=== PATIENT | female | born 2005 | race Hispanic/Latino ===

== ENCOUNTER → 2023-08-02 | Emergency (ER) | payer OTHER ==
[~2023-08-02] MED LIST: MORPHINE 4 MG/ML SYR ONE; NA CHLORIDE 0.9% 1,000 ML ONE; ONDANSETRON 4 MG/2 ML VIAL ONE
[2023-08-02 22:05] LABS: Absolute Lymphocytes (CBC) 4.1 K/uL (0.7-4.9); Hematocrit 37.1 % (36.0-45.0); Lymphocytes % 31.7 % (15.3-44.8); MCV 82.2 fL (80-100); MPV 7.9 fL (7.6-11.3); Platelets 303 thou/uL (152-406); RBC Red Blood Cell Count 4.52 M/uL (3.86-4.86)
[2023-08-02 22:14] LABS: Bilirubin Total 0.3 mg/dL (0.2-1.0); Potassium 3.6 mEq/L (3.5-5.1); Protein, Total 7.4 g/dL (6.4-8.2)
[2023-08-02 23:13] LABS: Specific Gravity > 1.030 (1.005-1.030)
[2023-08-02 23:21] LABS: Specific Gravity > 1.030 (1.005-1.030); Urine Bacteria None Seen /HPF (<20); Urine Bilirubin NEGATIVE (Negative); Urine Blood Negative (Negative); Urine Clarity Clear (Clear); Urine Color Light-Yellow (Yellow); Urine Glucose NEGATIVE (Negative); Urine Mucus Slight /HPF (None Seen); Urine Protein TRACE (Negative); Urine RBC <5 /HPF (None Seen); Urine Urobilinogen Normal (Normal)
--- NOTE | 2023-08-03 00:50 | EDPHYS ---
Physician Documentation [facility] Name: Rebeca Juan Age: 17 yrs Sex: Female : 2005 Arrival Date: 08/02/2023 Time: 20:36 Bed 11 Private MD: ED Physician Mikhail Osorio HPI: 08/02 21:04 This 17 yrs old Female presents to ER via Ambulatory with complaints of sb4 Abdominal Pain, Nausea. 21:04 The patient presents with abdominal pain in the right upper quadrant. Onset: The sb4 symptoms/episode began/occurred last night. The symptoms do not radiate. Associated signs and symptoms: Pertinent positives: nausea, Pertinent negatives: diarrhea, fever, vomiting. Modifying factors: The symptoms are alleviated by remaining still, the symptoms are aggravated by pressure. The patient has not experienced similar symptoms in the past. The patient has not recently seen a physician. 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 - Social history:: Smoking status: Patient denies any tobacco usage or history of. ROS: 21:04 Constitutional: Negative for fever, chills, and weight loss, sb4 21:04 Abdomen/GI: Positive for abdominal pain, nausea, 21:04 All other systems are negative, Exam: 21:04 Constitutional: This is a well developed, well nourished patient who is awake, alert, sb4 and in no acute distress. Head/Face: Normocephalic, atraumatic. Eyes: Extra-ocular motions intact. Periorbital areas with no swelling, redness, or edema. ENT: Mucous membranes moist. Cardiovascular: Regular rate and rhythm with a normal S1 and S2. Respiratory: Lungs have equal breath sounds bilaterally, clear to auscultation and percussion. No rales, rhonchi or wheezes noted. No increased work of breathing, no retractions or nasal flaring. Skin: Warm, dry with normal turgor. Normal color with no rashes, no lesions, and no evidence of cellulitis. MS/ Extremity: Pulses equal, no cyanosis. Neurovascular intact. Full, normal range of motion. Neuro: Awake and alert, GCS 15, oriented to person, place, time, and situation. Motor strength 5/5 in all extremities. Sensory grossly intact. 21:04 Abdomen/GI: Inspection: abdomen appears normal, Bowel sounds: normal, Palpation: soft, mild abdominal tenderness, in the right upper quadrant, Vital Signs: 20:50 BP 132 / 91; Pulse 96; Resp 18; Temp 98.3; Pulse Ox 100% on R/A; Weight 56.7 kg; Height cm10 5 ft. 4 in. ; Pain 7/10; 08/03 01:00 BP 117 / 89; Pulse 84; Resp 16; Pulse Ox 99% on R/A; jb4 08/02 20:50 Body Mass Index 21.46 (56.70 kg, 162.56 cm) - Percentile 46.9 % cm10 08/02 20:50 Pain Scale: Adult cm10 MDM: 08/02 20:45 Patient medically screened. sb4 08/03 00:47 Differential diagnosis: appendicitis, cholecystitis, Cholelithiasis, gastritis, sb4 non-specific abd pain, urinary tract infection. Data reviewed: vital signs, nurses notes, lab test result(s), radiologic studies, and as a result, I will discharge patient. Historians other than the Patient: Parent: mother. Counseling: I had a detailed discussion with the patient and/or guardian regarding the historical points, exam findings, and any diagnostic results supporting the discharge/admit diagnosis, lab results, radiology results, to return to the emergency department if symptoms worsen or persist or if there are any questions or concerns that arise at home. 08/02 20:58 Order name: CBC with Diff; Complete Time: 22:16 sb4 08/02 20:58 Order name: CMP; Complete Time: 22:16 sb4 08/02 20:58 Order name: Lipase; Complete Time: 22:16 sb4 08/02 20:58 Order name: Test, Urine; Complete Time: 23:24 sb4 08/02 20:58 Order name: Urinalysis w/ reflexes; Complete Time: 23:24 sb4 08/02 20:58 Order name: CT Abd/Pelvis - IV Contrast Only sb4 08/02 20:58 Order name: IV Saline Lock; Complete Time: 21:48 sb4 08/02 20:58 Order name: Labs collected and sent; Complete Time: 21:48 sb4 Administered Medications: 08/02 21:06 Not Given (Physician Discretion): ondansetron 2 mg IVP once; over 2 minutes sb4 21:06 Not Given (Physician Discretion): morphineor iv 4 mg IVP once over 4 mins sb4 21:48 Drug: NS 0.9% IV 1000 ml IV at 1 bolus Per protocol; 1000 mL bolus Route: IV; Rate: 1 tl4 bolus; Site: right antecubital; 23:29 Follow up: Response: No adverse reaction; IV Status: Completed infusion; IV Intake: tl4 1000ml 21:48 Drug: morphine IVP or IV 2 mg IVP once over 4 mins Route: IVP; Infused Over: 4 mins; tl4 Site: right antecubital; 23:28 Follow up: Response: No adverse reaction; Pain is decreased tl4 21:48 Drug: Ondansetron IVP 4 mg IVP once; over 2 minutes Route: IVP; Site: right antecubital;tl4 23:28 Follow up: Response: No adverse reaction; Nausea is decreased tl4 Disposition Summary: 08/03/23 00:50 Discharge Ordered Notes: Location: Home sb4 Problem: new sb4 Symptoms: have improved sb4 Condition: Stable sb4 Diagnosis - Upper abdominal pain, unspecified sb4 Followup: sb4 - With: Emergency Department - When: As needed - Reason: Trouble breathing, Worsening of condition Discharge Instructions: - Discharge Summary Sheet sb4 - Abdominal Pain, Adult sb4 Forms: - Medication Reconciliation Form sb4 - Thank You Letter sb4 - Antibiotic Education sb4 - Prescription Opioid Use sb4 - Patient Portal Instructions sb4 - Leadership Thank You Letter sb4 Signatures: Dispatcher [employer] Marcella See PA-C PA-C sb4 Nadege Davidson RN RN cm10 Anton Darling tl4
--- NOTE | 2023-08-03 00:50 | ER ---
Nurse's Notes [facility] Name: Rebeca Juan Age: 17 yrs Sex: Female : 2005 Arrival Date: 08/02/2023 Time: 20:36 Bed 11 Private MD: Diagnosis: Upper abdominal pain, unspecified Presentation: 08/02 20:50 Chief complaint: Patient states: RUQ abdominal pain onset yesterday. Pt also reports cm10 nausea. Coronavirus screen: Vaccine status: Patient reports being unvaccinated. Client denies travel out of the [place] in the last 14 days. Ebola Screen: Patient denies travel to an Ebola-affected area in the 21 days before illness onset. No symptoms or risks identified at this time. Initial Sepsis Screen: Does the patient meet any 2 criteria? No. Patient's initial sepsis screen is negative. Does the patient have a suspected source of infection? No. Patient's initial sepsis screen is negative. Risk Assessment: Do you want to hurt yourself or someone else? Patient reports no desire to harm self or others. Onset of symptoms was August 02, 2023. 20:50 Method Of Arrival: Ambulatory cm10 20:50 Acuity: JANINE 3 cm10 Triage Assessment: 21:51 General: Appears in no apparent distress. Behavior is calm, cooperative. 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 - Social history:: Smoking status: Patient denies any tobacco usage or history of. Screenin:50 [facility] ED Fall Risk Assessment (Adult) History of falling in the last 3 months, tl4 including since admission No falls in past 3 months (0 pts) Confusion or Disorientation No (0 pts) Intoxicated or Sedated No (0 pts) Impaired Gait No (0 pts) Mobility Assist Device Used No (0 pt) Altered Elimination No (0 pt) Score/Fall Risk Level 0 - 2 = Low Risk Oriented to surroundings, Maintained a safe environment, Educated pt \T\ family on fall prevention, incl call for assistance when getting out of bed. Abuse screen: Denies threats or abuse. Denies injuries from another. Nutritional screening: No deficits noted. Tuberculosis screening: No symptoms or risk factors identified. Assessment: 21:48 Reassessment: No changes from previously documented assessment. Patient and/or family tl4 updated on plan of care and expected duration. Pain level reassessed. Patient is alert, oriented x 3, equal unlabored respirations, skin warm/dry/pink. Pain: Complains of pain in abdomen, right upper quadrant. GI: Bowel sounds present X 4 quads. Abd is soft X 4 quads Abdomen is tender to palpation in right upper quadrant. 08/03 00:37 Reassessment: Patient appears in no apparent distress at this time. Patient and/or jb4 family updated on plan of care and expected duration. Pain level reassessed. Patient is alert, oriented x 3, equal unlabored respirations, skin warm/dry/pink. Vital Signs: 08/02 20:50 BP 132 / 91; Pulse 96; Resp 18; Temp 98.3; Pulse Ox 100% on R/A; Weight 56.7 kg; Height cm10 5 ft. 4 in. ; Pain 7/10; 08/03 01:00 BP 117 / 89; Pulse 84; Resp 16; Pulse Ox 99% on R/A; jb4 08/02 20:50 Body Mass Index 21.46 (56.70 kg, 162.56 cm) - Percentile 46.9 % cm10 08/02 20:50 Pain Scale: Adult cm10 ED Course: 08/02 20:38 Patient arrived in ED. mr 20:45 Marcella Franz PA-C is PHCP. sb4 20:45 Mikhail Osorio MD is Attending Physician. sb4 20:51 Triage completed. cm10 20:51 Arm band placed on Patient placed in an exam room, on a stretcher, on pulse oximetry. cm10 21:00 Anton Darling is Primary Nurse. tl4 21:48 CBC with Diff Sent. tl4 21:48 CMP Sent. tl4 21:48 Lipase Sent. tl4 21:50 Patient has correct armband on for positive identification. Placed in gown. Bed in low tl4 position. Call light in reach. Side rails up X 1. Adult w/ patient. Provided Education on: ED process, medications. 21:50 No provider procedures requiring assistance completed. Inserted saline lock: 20 gauge tl4 in right antecubital area, using aseptic technique. Blood collected. 21:51 Door closed. Lights dimmed. Warm blanket given. tl4 21:57 Radiology exam delayed due to test not completed at this time. [facility] 23:01 Test, Urine Sent. tl4 23:01 Urinalysis w/ reflexes Sent. tl4 23:51 CT Abd/Pelvis - IV Contrast Only In Process Unspecified. EDIL 08/03 01:00 IV discontinued, intact, bleeding controlled, No redness/swelling at site. Pressure jb4 dressing applied. Administered Medications: 08/02 21:06 Not Given (Physician Discretion): ondansetron 2 mg IVP once; over 2 minutes sb4 21:06 Not Given (Physician Discretion): morphineor iv 4 mg IVP once over 4 mins sb4 21:48 Drug: NS 0.9% IV 1000 ml IV at 1 bolus Per protocol; 1000 mL bolus Route: IV; Rate: 1 tl4 bolus; Site: right antecubital; 23:29 Follow up: Response: No adverse reaction; IV Status: Completed infusion; IV Intake: tl4 1000ml 21:48 Drug: morphine IVP or IV 2 mg IVP once over 4 mins Route: IVP; Infused Over: 4 mins; tl4 Site: right antecubital; 23:28 Follow up: Response: No adverse reaction; Pain is decreased tl4 21:48 Drug: Ondansetron IVP 4 mg IVP once; over 2 minutes Route: IVP; Site: right antecubital;tl4 23:28 Follow up: Response: No adverse reaction; Nausea is decreased tl4 Medication: 21:50 VIS not applicable for this client. tl4 Intake: 23:29 IV: 1000ml; Total: 1000ml. tl4 Outcome: 08/03 00:50 Discharge ordered by . sb4 01:00 Discharged to home ambulatory, with family, [facility] 01:00 Condition: stable 01:00 Discharge instructions given to patient, Instructed on discharge instructions, follow up and referral plans. Demonstrated understanding of instructions, follow-up care, 01:01 Patient left the ED. jb4 Signatures: Dispatcher [employer] [facility] Mary Mckenzie, Marco Reg mr Chris Méndez, RN RN jb4 Oswaldo Mendiola eh4 Marcella Franz, QUITA [email or web address] Nadege Davidson, RN RN cm10 Phong, Anton 4
[2023-08-03 07:17] VITALS: BP 117/89; TEMP 98.3; O2SAT 99
--- NOTE | 2023-08-03 19:08 | RAD REPORT ---
EXAM DESCRIPTION: CT Abdomen and Pelvis With Intravenous Contrast CLINICAL HISTORY: The patient is 17 years old and is Female; RUQ PAIN, NAUSEA IV ONLY Bed Name: 11 TECHNIQUE: Axial computed tomography images of the abdomen and pelvis with intravenous contrast. S agittal and coronal reformatted images were created and reviewed. This CT exam was performed using one or more of the following dose reduction techniques: automated exposure control, adjustment of t he mA and/or kV according to patient size, and/or use of iterative reconstruction technique. COMPARISON: No relevant prior studies available. FINDINGS: LUNG BASES: Unremarkable No mass. No consolidation. ABDOMEN: LIVER: Periportal edema. No focal hepatic parenchymal abnormality. GALLBLADDER AND BILE DUCTS: Unremarkable No calcified stones. No ductal dilation. PANCREAS: Unremarkable No mass. No ductal dilation. SPLEEN: Unremarkable No splenomegaly. ADRENALS: Unremarkable No mass. KIDNEYS AND URETERS: Unremarkable No solid mass. No hydronephrosis. STOMACH AND BOWEL: Unremarkable No obstruction. No mucosal thickening. PELVIS: APPENDIX: No findings to suggest acute appendicitis. BLADDER: Unremarkable No mass. REPRODUCTIVE: Unremarkable as visualized. ABDOMEN and PELVIS: INTRAPERITONEAL SPACE: Unremarkable No free air. No significant fluid collection. BONES/JOINTS: No acute fracture. No dislocation. SOFT TISSUES: See above. VASCULATURE: Unremarkable No abdominal aortic aneurysm. LYMPH NODES: Unremarkable No enlarged lymph nodes. IMPRESSION: 1. Periportal edema. This finding is nonspecific and can be seen in the setting of rap id intravenous hydration as well as hepatitis. Clinical correlation recommended. 2. Otherwise, no acute findings in the abdomen or pelvis. Electronically signed by: Dino Jorgensen MD 08/03/2023 12:42 AM PRICING ACTUARY Due to temporary technical issues with the PACS/Fluency reporting system, reports are being signed by the in house radiologists without review as a courtesy to insure prompt reporting. The interpreting radiologist is fully responsible for the content of the report.
== END ==
LOC: ER 20:36
DX: R10.11 Right upper quadrant pain (principal); R11.0 Nausea
CPT/HCPCS: 96361; 85025; 81001; 36415; 81025; 83690; 80053; 74177; 96375; 96374; 99284; Q9967; J2405; J7030

== ENCOUNTER 2024-01-17 16:35 | Emergency (ER) | payer OTHER ==
--- OUTSIDE RECORDS SUMMARY | 2024-01-17 16:38 | XMS REPORT | Continuity of Care Document ---
Author Name Unknown Address [address] [place] [address] [address] [place], [place] [id number] [place] [address] [facility] Address [address] [place] [address] [address] [place] [address] Care Team Providers Care Construction Skills Teacher Name Role Phone PCP, PATIENT DOES NOT HAVE A Primary Care Physic lisa Unavailable WILFRID GAGNON Attending Clinician Unavail LARS Bone Attending Clinician Lars Chaparro MD Attending Clinician [phone] Doctor Unassigned, [place] Attending Clinician U LARS Neves Admitting Clinician Helio horner Payers Payer Name Policy Type Policy Number Effective Date Expirati on Date Source [employer] 2 [id number] 2020 00:00:00 [place] [id number] 2020 00:00:00 Allergies, Adverse Reactions, Alerts Allergy Name Allergy Type Status Severity Reaction(s) Onset Date Inactive Date Treating Clinician Comments Source NO KNOWN ALLERGIE S Drug Class Active [facility] Social History Social Habit Start Date Stop Date Quantity Comments Source Sexual orientation U [facility] Sex Assigned At 2005 00:00:00 2005 00:00:00 [facility] Smoking Status Start Date Stop Date Source Tobacco smoking consumption unknown [facility] Procedures Procedure Date / Time Performed Performing Clinicia n Source US ABDOMEN LIMITED 2023-09-27 16:44:24 Nadeen Obrien [facility] ASSIGNMENT OF BENEFITS 2023-09-27 15:37:58 Docto r Unassigned, [place] [facility] Encounters Start Date/Time End Date/Time Encounter Type Admission Type Attending Clinicians Care Facility Care Department Encounter ID Source 2023-12-27 08:30:00 2023-12-27 08:30:00 Outpatient CHELSI WILFRID JJ JJ [id number] Jj margiedoris 2023-09-27 09:41:23 2023-09-27 23:59:00 Outpatient R ALRS GUILLEN [facility] [id number] [facility] 2023-09-27 09:41:23 2023-09-27 23:59:00 Hospital Encounter Lars Guillen [facility] [id number] [facility] 2023-09-27 09:41:23 2023-09-27 23:59:00 Outpatient R LARS GUILLEN [facility] [id number] [facility] 2023-09-27 00:00:00 2023-09-27 00:00:00 Orders Only Doctor Unassigned, [place] [facility] [id number] [facility] 2023-09-20 00:00:00 2023-09-20 00:00:00 Outpatient R LARS GUILLEN [facility] [id number] [facility] Results Test Description Test Time Test Comments Results Result Comments Source ABDOMEN LIMITED 2023-09-07 2 16:46:51 HISTORY: Recurrent RUQ Abdominal pain. TECHNIQUE: Gallbladder is evaluated in multiple planes with the patient indifferent positions. Color imaging is utilized. FINDINGS: Gallbladder is elongated shaped, measuring 8.8 x 1.5 x 4.1 cm,with no edema or thickening of the mckeon. No gallstones. There is faintsmall biliary crystals were visualized. No free fluid detected inpericholecystic space. Common hepatic duct is 3.2 mm. Hepatic and portalvenous system appeared patent. The liver is 13.5 cm and spleen is 8.2 x 3.7 cm in size. No focalabnormalities seen in the liver or in the spleen. CONCLUSION: No gallstones or any evidence of acute cholecystitis. Smallbiliary crystals visualized in the gallbladder lumen which could be a signof chronic dysfunctioning gallbladder. [facility]
[2024-01-17] MEDS ORDERED: FAMOTIDINE 20 MG/2 ML VIAL IV ONE (16:47)
[2024-01-17] MEDS ORDERED: ONDANSETRON 4 MG/2 ML VIAL ONE (16:47)
[2024-01-17] MEDS ORDERED: KETOROLAC 30 MG/ML INJ ONE (16:47)
[2024-01-17] MEDS ORDERED: NA CHLORIDE 0.9% 1,000 ML ONE (16:48)
[2024-01-17 17:07] LABS: Absolute Basophils 0.1 K/uL (0-0.5); Absolute Eosinophils 0.3 K/uL (0-0.5); Absolute Lymphocytes (CBC) 3.2 K/uL (0.7-4.9); Absolute Monocytes 0.6 K/uL (0.1-1.3); Absolute Neutrophil 5.8 K/uL (1.8-8.0); Basophils % 0.7 % (0-1.3); Eosinophils % 2.7 % (0-4.4); Hematocrit 40.4 % (36.0-45.0); Hemoglobin 13.8 g/dL (12.0-15.0); Lymphocytes % 32.7 % (15.3-44.8); MCV 85.2 fL (80-100); MPV 7.7 fL (7.6-11.3); Neutrophils % 57.9 % (41.7-73.7); Platelets 316 thou/uL (152-406); RBC Red Blood Cell Count 4.74 M/uL (3.86-4.86); Red Cell Distribution Width 13.4 % (12.1-15.2)
[2024-01-17 17:09] LABS: Specific Gravity 1.019 (1.005-1.030); Urine Bilirubin NEGATIVE (Negative); Urine Blood Negative (Negative); Urine Clarity Clear (Clear); Urine Color Light-Yellow (Yellow); Urine Glucose NEGATIVE (Negative); Urine Ketones NEGATIVE (Negative); Urine Microscopic Reflex YN NO UMIC; Urine Nitrite NEGATIVE (Negative); Urine Protein NEGATIVE (Negative); Urine Urobilinogen Normal (Normal); Urine pH 7.5 (5.0-7.0)
[2024-01-17 17:19] LABS: ALT/SGPT 15 U/L (13-56); Albumin 3.9 g/dL (3.4-5.0); Albumin/Globulin Ratio 1.1 (1.1-1.8); Alkaline Phosphatase 60 U/L (45-117); Anion Gap 7.9 mEq/L (5.0-15.0); BUN Blood Urea Nitrogen 10 mg/dL (7-18); Bicarbonate 28 mEq/L (21-32); Bilirubin Total 0.4 mg/dL (0.2-1.0); Globulin 3.6 g/dL (2.3-3.5); Glomerular Filtration Rate 110 ml/min (=/>90); Glucose Level 104 mg/dL (74-106); Lipase 51 U/L (13-75); Potassium 3.9 mEq/L (3.5-5.1); Protein, Total 7.5 g/dL (6.4-8.2); Sodium Level 139 mEq/L (136-145)
[2024-01-17 17:30] LABS: AST/SGOT < 10 U/L (15-37)
[2024-01-17 17:48] LABS: White Blood Cell Scan OK (OK)
[2024-01-17 17:49] LABS: Blood Morphology Comment NOT SEEN (NOT SEEN); Platelet Estimate ADEQ
--- NOTE | 2024-01-17 18:21 | RAD REPORT ---
EXAM DESCRIPTION: US - Abdomen Exam Limited - 01/17/2024 5:10 pm CLINICAL HISTORY: ABD PAIN COMPARISON: Abdomen Pelvis W Contrast dated 08/02/2023 TECHNIQUE: Sonographic grayscale and color flow images of the right upper abdominal quadrant were o btained. FINDINGS: The gallbladder demonstrates no gallstones. No pericholecystic fluid or gallbladder wall t hickening. The common bile duct is normal measuring 2 mm. The liver demonstrates no findings of intrahepatic biliary dilatation. IMPRESSION: Unremarkable right upper quadrant ultrasound.
--- NOTE | 2024-01-17 18:42 | ER ---
Nurse's Notes [facility] Name: Rebeca Juan Age: 18 yrs Sex: Female : 2005 Arrival Date: 01/17/2024 Time: 16:35 Bed 19 Private MD: Diagnosis: Upper abdominal pain, unspecified Presentation: 01/16 16:43 Chief complaint: Patient states: abdominal pain and nausea x3 days. Coronavirus screen: as6 At this time, the client does not indicate any symptoms associated with coronavirus-19. Ebola Screen: No symptoms or risks identified at this time. Initial Sepsis Screen: Does the patient meet any 2 criteria? No. Patient's initial sepsis screen is negative. Does the patient have a suspected source of infection? No. Patient's initial sepsis screen is negative. Risk Assessment: Do you want to hurt yourself or someone else? Patient reports no desire to harm self or others. Onset of symptoms was January 14, 2024. 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 - Infectious Disease History:: Denies. - Social history:: Smoking status: . Screenin:55 [facility] ED Fall Risk Assessment (Adult) History of falling in the last 3 months, aa5 including since admission No falls in past 3 months (0 pts) Confusion or Disorientation No (0 pts) Intoxicated or Sedated No (0 pts) Impaired Gait No (0 pts) Mobility Assist Device Used No (0 pt) Altered Elimination No (0 pt) Score/Fall Risk Level 0 - 2 = Low Risk Oriented to surroundings, Maintained a safe environment, Educated pt \T\ family on fall prevention, incl call for assistance when getting out of bed. Abuse screen: Denies threats or abuse. Nutritional screening: No deficits noted. Tuberculosis screening: No symptoms or risk factors identified. Assessment: 16:55 General: Appears comfortable, Behavior is calm, cooperative. Pain: Complains of pain in aa5 right upper quadrant Pain currently is 7 out of 10 on a pain scale. Quality of pain is described as sharp, Pain began 2-3 days ago. Pt states she had similar episodes back in July 2023 and September 2023. Is intermittent. Neuro: Level of Consciousness is awake, alert, obeys commands, Oriented to person, place, time, situation. Cardiovascular: Patient's skin is warm and dry. Respiratory: Airway is patent Respiratory effort is even, unlabored, Respiratory pattern is regular, symmetrical. GI: Abdomen is flat, non-distended, Bowel sounds present X 4 quads. Abd is soft and non tender X 4 quads. Reports nausea. : No signs and/or symptoms were reported regarding the genitourinary system. EENT: No signs and/or symptoms were reported regarding the EENT system. Derm: Skin is pink, warm \T\ dry. Musculoskeletal: Range of motion: intact in all extremities. 17:02 Reassessment: US at bedside . aa5 18:31 Reassessment: Patient is alert, oriented x 3, equal unlabored respirations, skin aa5 warm/dry/pink. Reports pain improved slightly. . 18:54 Reassessment: Patient is alert, oriented x 3, equal unlabored respirations, skin aa5 warm/dry/pink. Vital Signs: 16:43 BP 132 / 89; Pulse 91; Resp 17; Temp 97.6; Pulse Ox 100% ; Weight 56.7 kg; Height 5 ft. as6 3 in. ; Pain 7/10; 18:38 BP 110 / 77; Pulse 90; Resp 16 S; Pulse Ox 100% on R/A; aa5 16:43 Body Mass Index 22.14 (56.70 kg, 160.02 cm) as6 16:43 Pain Scale: Adult as6 ED Course: 16:39 Patient arrived in ED. mg5 16:40 Kemi Oglesby FNP-C is PHCP. kb 16:41 Mikhail Osorio MD is Attending Physician. kb 16:44 Triage completed. as6 16:44 Monica Ching, RN is Primary Nurse. aa5 16:44 Arm band placed on. as6 16:55 Patient has correct armband on for positive identification. Bed in low position. Call aa5 light in reach. Side rails up X 1. Adult w/ patient. Pulse ox on. NIBP on. 16:56 Initial lab(s) drawn, by me, sent to lab. Inserted saline lock: 20 gauge in right aa5 antecubital area, using aseptic technique. Blood collected. 16:56 Urine collected: clean catch specimen, clear. aa5 17:12 Abdomen Limited US In Process Unspecified. EDMS 18:48 IV discontinued, intact, bleeding controlled, No redness/swelling at site. Pressure aw1 dressing applied. 18:48 IV d/c'd by automotive repair technician. aa5 18:55 No provider procedures requiring assistance completed. aa5 Administered Medications: 16:56 Drug: NS 0.9% IV 1000 ml IV at 1 bolus Per protocol; 1000 mL bolus Route: IV; Rate: 1 aa5 bolus; Site: right antecubital; 18:38 Follow up: IV Status: Completed infusion; IV Intake: 1000ml aa5 16:56 Drug: Famotidine IVP 20 mg IVP once; dilute with 10 mL 0.9% NaCl; give over 2 minutes aa5 Route: IVP; Site: right antecubital; 17:14 Follow up: Response: No adverse reaction aa5 16:58 Drug: Ondansetron IVP 4 mg IVP once; over 2 minutes Route: IVP; Site: right antecubital;aa5 17:13 Follow up: Response: No adverse reaction aa5 17:14 Drug: TORadol - Ketorolac IVP 15 mg IVP once Route: IVP; Site: right antecubital; aa5 17:30 Follow up: Response: No adverse reaction aa5 Medication: 17:05 VIS not applicable for this client. aa5 Intake: 18:38 IV: 1000ml; Total: 1000ml. aa5 Outcome: 18:41 Discharge ordered by MD. wade 18:54 Discharged to home ambulatory, with family, aa5 18:54 Condition: stable 18:54 Discharge instructions given to patient, Instructed on discharge instructions, follow up and referral plans. medication usage, Demonstrated understanding of instructions, follow-up care, medications, Prescriptions given X 2, 18:55 Patient left the ED. aa5 Signatures: Dispatcher [employer] EDRI Kemi Oglesby, FARHAN CHATTERJEE-Monica Allen, RN RN aa5 Ruddy Rodriguez RN RN as6 Zulma Feldman aw1 Swan, Sruthi mg5
--- NOTE | 2024-01-17 18:42 | EDPHYS ---
Physician Documentation [facility] Name: Rebeca Juan Age: 18 yrs Sex: Female : 2005 Arrival Date: 01/17/2024 Time: 16:35 Bed 19 Private MD: ED Physician Mikhail Osorio HPI: 01/16 16:50 This 18 yrs old Female presents to ER via Ambulatory with complaints of kb Abdominal Pain. 16:50 Pt is a 18 year old female who presents for RUQ pain that started 3 days ago with kb associated nausea and diarrhea. States she has had this pain on and off since July. Pain worse after eating. . 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 - Infectious Disease History:: Denies. - Social history:: Smoking status: . ROS: 16:50 Constitutional: As per HPI kb Exam: 16:50 Constitutional: This is a well developed, well nourished patient who is awake, alert, kb and in no acute distress. Head/Face: Normocephalic, atraumatic. ENT: Moist Mucous membranes Cardiovascular: Regular rate Respiratory: Respirations even and unlabored. No increased work of breathing. Talking in full sentences Skin: Warm, dry with normal turgor. Normal color. MS/ Extremity: Pulses equal, no cyanosis. Neurovascular intact. Full, normal range of motion. Neuro: Awake and alert, GCS 15, oriented to person, place, time, and situation. Moves all extremities. Normal gait. 16:50 Abdomen/GI: Inspection: abdomen appears normal, Bowel sounds: normal, Palpation: soft, in all quadrants, mild abdominal tenderness, in the right upper quadrant, Vital Signs: 16:43 BP 132 / 89; Pulse 91; Resp 17; Temp 97.6; Pulse Ox 100% ; Weight 56.7 kg; Height 5 ft. as6 3 in. ; Pain 7/10; 18:38 BP 110 / 77; Pulse 90; Resp 16 S; Pulse Ox 100% on R/A; aa5 16:43 Body Mass Index 22.14 (56.70 kg, 160.02 cm) as6 16:43 Pain Scale: Adult as6 MDM: 16:41 Patient medically screened. kb 16:51 Differential diagnosis: cholecystitis, Cholelithiasis, gastritis, Hepatitis, kb non-specific abd pain, pancreatitis. Data reviewed: vital signs, nurses notes. Historians other than the Patient: Parent: mother. 18:40 Counseling: I had a detailed discussion with the patient and/or guardian regarding the kb historical points, exam findings, and any diagnostic results supporting the discharge/admit diagnosis, lab results, radiology results, the need for outpatient follow up, a molder sweep, to return to the emergency department if symptoms worsen or persist or if there are any questions or concerns that arise at home. ED course: Pt has a follow up appt with GI on 01/31/24.. 01/16 16:44 Order name: CBC with Diff; Complete Time: 17:57 kb 01/16 16:44 Order name: CMP; Complete Time: 17:32 kb 01/16 16:44 Order name: Lipase; Complete Time: 17:32 kb 01/16 16:44 Order name: Test, Urine; Complete Time: 17:14 kb 01/16 16:44 Order name: Urinalysis w/ reflexes; Complete Time: 17:10 kb 01/16 17:49 Order name: CBC Smear Scan; Complete Time: 17:57 EDMS 01/16 16:44 Order name: Abdomen Limited US; Complete Time: 18:25 kb 01/16 16:44 Order name: IV Saline Lock; Complete Time: 17:00 kb 01/16 16:44 Order name: Labs collected and sent; Complete Time: 17:00 kb Administered Medications: 16:56 Drug: NS 0.9% IV 1000 ml IV at 1 bolus Per protocol; 1000 mL bolus Route: IV; Rate: 1 aa5 bolus; Site: right antecubital; 18:38 Follow up: IV Status: Completed infusion; IV Intake: 1000ml aa5 16:56 Drug: Famotidine IVP 20 mg IVP once; dilute with 10 mL 0.9% NaCl; give over 2 minutes aa5 Route: IVP; Site: right antecubital; 17:14 Follow up: Response: No adverse reaction aa5 16:58 Drug: Ondansetron IVP 4 mg IVP once; over 2 minutes Route: IVP; Site: right antecubital;aa5 17:13 Follow up: Response: No adverse reaction aa5 17:14 Drug: TORadol - Ketorolac IVP 15 mg IVP once Route: IVP; Site: right antecubital; aa5 17:30 Follow up: Response: No adverse reaction aa5 Disposition Summary: 01/17/24 18:41 Discharge Ordered Notes: Location: Home kb Condition: Stable kb Diagnosis - Upper abdominal pain, unspecified kb Followup: kb - With: Emergency Department - When: As needed - Reason: Worsening of condition Followup: kb - With: Private Physician - When: 2 - 3 days - Reason: Recheck today's complaints, Continuance of care, Re-evaluation by your physician Discharge Instructions: - Discharge Summary Sheet kb - Abdominal Pain, Adult, [id number] kb Forms: - Medication Reconciliation Form kb - Antibiotic Education kb - Prescription Opioid Use kb - Patient Portal Instructions kb - Leadership Thank You Letter kb - Work release form ss Prescriptions: - Zofran 4 mg Oral tablet - take 1 tablet ORAL route every 6 hours As needed; 12 tablet; Refills: 0, kb Product Selection Permitted - dicyclomine 20 mg Oral tablet - take 1 tablet ORAL route 4 times per day As needed; 20 tablet; Refills: 0, kb Product Selection Permitted Signatures: Dispatcher [employer] Kemi Willett, SHENA-C MEDICAL RECEPTION-Monica Allen, RN RN aa5 Ruddy Rodriguez RN RN as6 Corrections: (The following items were deleted from the chart) 16:44 16:44 Abdomen Limited+US.RAD.BRZ ordered. REBEKA STALEY
[2024-01-17 19:36] VITALS: BP 110/77; TEMP 97.6; O2SAT 100
== END 2024-01-17 18:55 | disposition home or self-care (01) ==
LOC: ER 16:35
DX: R10.11 Right upper quadrant pain (principal)
CPT/HCPCS: 96361; 85025; 36415; 81025; 81003; 83690; 80053; 76705; 96375; 96374; 99284; J2405; J7030

== ENCOUNTER 2024-03-24 10:15 | Day surgery (SDC) | payer OTHER ==
[2024-03-24 10:42] LABS: Absolute Basophils 0.1 K/uL (0-0.5); Absolute Eosinophils 0.2 K/uL (0-0.5); Absolute Monocytes 0.6 K/uL (0.1-1.3); Absolute Neutrophil 7.2 K/uL (1.8-8.0); Basophils % 0.6 % (0-1.3); Eosinophils % 1.8 % (0-4.4); Hematocrit 41.2 % (36.0-45.0); Hemoglobin 13.6 g/dL (12.0-15.0); Lymphocytes % 27.1 % (15.3-44.8); MCH 28.6 pg (27.0-35.0); MCHC 33.1 g/dL (32.0-36.0); MCV 86.6 fL (80-100); MPV 7.8 fL (7.6-11.3); Monocytes % 5.4 % (3.3-12.3); Neutrophils % 65.1 % (41.7-73.7); Platelets 324 thou/uL (152-406); RBC Red Blood Cell Count 4.76 M/uL (3.86-4.86); Red Cell Distribution Width 12.8 % (12.1-15.2)
[2024-03-24] MEDS: Ringers Lactate 1,000 ML IV ONE (10:45)
[2024-03-24 10:54] LABS: Albumin 4.1 g/dL (3.4-5.0); Albumin/Globulin Ratio 1.2 (1.1-1.8); Anion Gap 8.8 mEq/L (5.0-15.0); Bilirubin Direct 0.2 mg/dL (0-0.2); Bilirubin Indirect, Calculated 0.5 mg/dL (0.2-0.8); Bilirubin Total 0.7 mg/dL (0.2-1.0); Globulin 3.5 g/dL (2.3-3.5); Potassium 3.8 mEq/L (3.5-5.1); Protein, Total 7.6 g/dL (6.4-8.2)
[2024-03-24] MEDS ORDERED: ROCURONIUM 50 MG/5 ML VIAL IV ONE (12:17)
[2024-03-24] MEDS ORDERED: propofoL 200 MG/20 ML VIAL IV ONE (12:17)
[2024-03-24] MEDS ORDERED: MIDAZOLAM HCL 2 MG/2 ML INJ ONE (12:17)
[2024-03-24] MEDS ORDERED: LIDOCAINE 1% MPF 5 ML VIAL ONE (12:17)
[2024-03-24] MEDS ORDERED: FENTANYL CITR 100 MCG/2 ML ONE (12:17)
[2024-03-24] MEDS: CEFOXITIN SODIUM 1 GM/VIAL ONE (12:34)
[2024-03-24] MEDS ORDERED: KETOROLAC 30 MG/ML INJ ONE (12:49)
[2024-03-24] MEDS ORDERED: ONDANSETRON 4 MG/2 ML VIAL ONE (12:49)
[2024-03-24] MEDS ORDERED: EPHEDRINE SULF 50 MG/ML VIAL ONE (13:06)
[2024-03-24] MEDS ORDERED: SUGAMMADEX SODIUM 200 MG/2 ML VIAL IV ONE (13:11)
[2024-03-24] MEDS: FENTANYL CITR 100 MCG/2 ML ONE (13:55)
[2024-03-24] MEDS ORDERED: Ringers Lactate 1,000 ML IV ONE (14:16)
[2024-03-24] MEDS: CODEINE 30MG/APAP 300MG TAB ONE (14:39)
[2024-03-24 15:29] VITALS: BP 130/60; TEMP 97.4; O2SAT 100
--- NOTE | 2024-04-24 14:24 | P.BOP ---
Preoperative diagnosis: RUQ abd pain, biliary dyskinesia Postoperative diagnosis: same Primary procedure: Laparoscopic cholecystectomy Estimated blood loss: <10cc Specimen: gb Findings: as above Anesthesia: General Complications: None Transferred to: Recovery Room Condition: Good
--- NOTE | 2024-04-24 16:36 | OP ---
Date of Procedure: 03/24/2024 Surgeon: Venkat Davidson MD Preoperative Diagnoses: Right upper quadrant abdominal pain, biliary dyskinesia. Postoperative Diagnoses: Right upper quadrant abdominal pain, biliary dyskinesia. Procedure: Laparoscopic cholecystectomy. Estimated Blood Loss: Less than 10 cc. Specimen: Gallbladder. Anesthesia: General plus local. Indication: This is a case of a 18-year-old patient who came to us with right upper quadrant abdomin al pain. She did have multiple visits to doctors, multiple attempts, trying to diagnose the disease and eventually diagnosed with biliary dyskinesia. She has different options. She wants to use the o ption of laparoscopic possible open cholecystectomy. So the benefits, alternatives, and risks fully explained, which include, but not limited to, infection, bleeding, damage to adjacent structures, ane sthesia complication, choledocholithiasis, bile leak, pancreatitis, RI, and even . She also und erstands this might not relieve any symptoms. She might need more than one surgical intervention. S he understood, signed a consent. Description Of Procedure: The patient was brought to the operating room, placed in supine position. Anesthesia was done without complication. Abdominal area was prepped and draped in the usual steril e fashion. Marcaine 0.5% was injected for local anesthetic followed by sharp incision of the skin in the periumbilical region. Incision was carried down to fascia, which was opened under direct vision . Peritoneum was encountered, opened under direct vision. Vicryl #1 placed inside the fascia. Ray on trocar was carefully introduced. Pneumoperitoneum was obtained. I placed 3 more trocars, 5 mm ea ch one of them, 1 in the epigastric area, 2 in the right upper quadrant using the same technique whic h consisted of local anesthetic, sharp incision of the skin, and introduction of the trocars under di rect vision. This allowed me to put a grasper in the fundus of the gallbladder, another grasper in t he infundibulum, retracting the gallbladder in the inferolateral fashion exposing the triangle of Mega ot and obtaining critical view. Cystic duct and cystic artery were clearly isolated, freed circumfer entially and a connection between those and the gallbladder were clearly identified. I proceeded to ligate those by using at least 3 clips proximal, 1 clip distal, and ligation in the middle. Same was done with the cystic artery. No bile leak. No bleeding. The gallbladder was removed from the live r using Bovie cauterizer and removed from the abdominal cavity using an EndoCatch through the umbilic al incision. The area was inspected once again. No bile leak. No bleeding. At that moment, I proc eeded to remove the trocars under direct vision, deflated pneumoperitoneum, closed the fascia with #1 Vicryl. Irrigated subcutaneous tissue, closed that with 3-0 chromic and the skin approximated. Spo nge counts and instrument counts correct. Patient tolerated the procedure well. Patient sent to [facility] in stable condition. JAVIER/LUCRECIA Voice ID: [id number] Report ID: [id number]
== END 2024-03-24 15:10 | disposition home or self-care (01) ==
LOC: OR 10:15
PROVIDERS: ATTEND Surgery
PROC: 0FT44ZZ Resection of Gallbladder, Percutaneous Endoscopic Approach (ICD-10-PCS; principal; 2024-03-24 13:00)
DX: K81.9 Cholecystitis, unspecified (principal); R93.2 Abnormal findings on diagnostic imaging of liver and biliary tract
CPT/HCPCS: 47562; 85025; 80048; 36415; 81025; 80076; 88304; 83690; J2704; J2001; J2250; J3010 ×2; J0694; J2405; J7120 ×2

== ENCOUNTER 2024-09-11 14:37 | Emergency (ER) | payer OTHER ==
--- OUTSIDE RECORDS SUMMARY | 2024-09-11 14:40 | XMS REPORT | Continuity of Care Document ---
Author Name Unknown Address [address] [place] [address]. 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 Name Role Phone PCP, PATIENT DOES NOT HAVE A Primary Care Physic lisa Unavailable WILFRID GAGNON Attending Clinician LARS Newman Attending Clinician Lars Chaparro MD Attending Clinician [phone] Doctor Unassigned, [place] Attending Clinician U LARS Neves Admitting Clinician Helio horner Payers Payer Name Policy Type Policy Number Effective Date Expirati on Date Source [employer] 2 [id number] 2020 00:00:00 [place] [employer] [id number] 2020 00:00:00 Allergies, Adverse Reactions, Alerts Allergy Name Allergy Type Status Severity Reaction(s) Onset Date Inactive Date Treating Clinician Comments Source NO KNOWN ALLERGIE S Drug Class Active [facility] Social History Social Habit Start Date Stop Date Quantity Comments Source Sexual orientation U [facility] Sex Assigned At 2005 00:00:00 2005 00:00:00 [facility] Smoking Status Start Date Stop Date Source Tobacco smoking consumption unknown [facility] Procedures Procedure Date / Time Performed Performing Clinicia n Source US ABDOMEN LIMITED 2023-09-27 16:44:24 Nadeen Obrien [facility] ASSIGNMENT OF BENEFITS 2023-09-27 15:37:58 Docto r Unassigned, [place] [facility] Encounters Start Date/Time End Date/Time Encounter Type Admission Type Attending [facility] Care Facility Care Department Encounter ID Source 2024-10-08 13:30:00 2024-10-08 13:30:00 Outpatient WILFRID GAGNON [id number] [facility] 2024-09-11 00:00:00 2024-09-11 00:00:00 Outpatient WILFRID GAGNON [id number] [facility] 2023-12-27 08:30:00 2023-12-27 08:30:00 Outpatient WILFRID GAGNON [id number] [facility] 2023-09-27 09:41:23 2023-09-27 23:59:00 Outpatient R LARS GUILLEN [facility] [id number] [facility] 2023-09-27 09:41:23 2023-09-27 23:59:00 Hospital Encounter Lars Guillen [facility] [id number]..[id number] [facility] 2023-09-27 09:41:23 2023-09-27 23:59:00 Outpatient R LARS GUILLEN [facility] [id number] [facility] 2023-09-27 00:00:00 2023-09-27 00:00:00 Orders Only Doctor Unassigned, [place] [facility] 1..[id number] [facility] 2023-09-20 00:00:00 2023-09-20 00:00:00 Outpatient R LARS GUILLEN [facility] [id number] [facility] Results Test Description Test Time Test Comments Results Result Comments Source US ABDOMEN LIMITED 2023-09-07 2 16:46:51 HISTORY: Recurrent [...] could be a signof chronic dysfunctioning gallbladder. [facility]
[2024-09-11 16:25] LABS: Specific Gravity 1.021 (1.005-1.030); Sqamous Epithelial <5 /HPF (None Seen); Urine Bacteria None Seen /HPF (<20); Urine Bilirubin NEGATIVE (Negative); Urine Blood Trace (Negative); Urine Clarity Clear (Clear); Urine Color Light-Yellow (Yellow); Urine Culture Reflex Order NOT NEEDED; Urine Glucose NEGATIVE (Negative); Urine Ketones 3+ (Negative); Urine Micro Reflex YN NO BILL MICROSCOPIC; Urine Mucus Slight /HPF (None Seen); Urine Nitrite NEGATIVE (Negative); Urine Protein NEGATIVE (Negative); Urine RBC <5 /HPF (None Seen); Urine Urobilinogen Normal (Normal); Urine WBC <5 /HPF (<5); Urine pH 5.5 (5.0-7.0)
--- NOTE | 2024-09-11 17:57 | RAD REPORT ---
EXAMINATION: US Transvaginal Study Probe CLINICAL INDICATION: Female 19 years old.[facility] 08-30-2024 lower abdomen pain Bed Name: [facility] TECHNIQUE: Real-time ultrasonography of the pelvis was performed transvaginally. Color and spectral D oppler evaluation of the ovaries was performed. COMPARISON: No prior exam. FINDINGS: UTERUS AND CERVIX: The uterus measures 6.4 cm in length. The uterus is normal. No masses seen The end ometrium is normal, 1 7 cm in thickness. RIGHT OVARY: Normal The right ovary measures 2.4 x 2.5 x 2.1 cm. Normal color and spectral Doppler evaluation of the right ovary.. LEFT OVARY: Normal The left ovary measures 2.1 x 1.6 x 1.2 cm. Normal color and spectral Doppler evaluation of the left ovary. Bilateral normal peripheral follicles within both ovaries. FREE FLUID: No free fluid. IMPRESSION: No suspicious pelvic abnormality
[2024-09-11 18:12] LABS: Absolute Eosinophils 0.2 K/uL (0-0.5); Absolute Lymphocytes (CBC) 3.3 K/uL (0.7-4.9); Absolute Monocytes 0.5 K/uL (0.1-1.3); Absolute Neutrophil 6.1 K/uL (1.8-8.0); Basophils % 0.4 % (0-1.3); Eosinophils % 1.9 % (0-4.4); Hematocrit 37.9 % (36.0-45.0); Hemoglobin 13.2 g/dL (12.0-15.0); Lymphocytes % 32.8 % (15.3-44.8); MCHC 34.9 g/dL (32.0-36.0); MCV 85.9 fL (80-100); MPV 7.6 fL (7.6-11.3); Monocytes % 4.7 % (3.3-12.3); Neutrophils % 60.2 % (41.7-73.7); Nucleated Red Blood Cells % 0.1 % (0-0); Platelets 281 thou/uL (152-406); RBC Red Blood Cell Count 4.41 M/uL (3.86-4.86); Red Cell Distribution Width 12.5 % (12.1-15.2)
[2024-09-11 18:27] LABS: Albumin 3.9 g/dL (3.4-5.0); Albumin/Globulin Ratio 1.2 (1.1-1.8); Alkaline Phosphatase 51 U/L (45-117); Anion Gap 6.6 mEq/L (5.0-15.0); BUN Blood Urea Nitrogen 9 mg/dL (7-18); Bicarbonate 25 mEq/L (21-32); Bilirubin Total 0.6 mg/dL (0.2-1.0); Globulin 3.3 g/dL (2.3-3.5); Glomerular Filtration Rate 127 ml/min (=/>90); Glucose Level 105 mg/dL (74-106); Lipase 38 U/L (13-75); Potassium 3.6 mEq/L (3.5-5.1); Protein, Total 7.2 g/dL (6.4-8.2); Sodium Level 137 mEq/L (136-145)
[2024-09-11 18:28] LABS: ALT/SGPT < 14 U/L (13-56); AST/SGOT < 10 U/L (15-37)
[2024-09-11] MEDS ORDERED: NA CHLORIDE 0.9% 1,000 ML ONE (18:41)
[2024-09-11] MEDS ORDERED: KETOROLAC 30 MG/ML INJ ONE (18:41)
--- NOTE | 2024-09-11 19:48 | RAD REPORT ---
EXAMINATION: CT Abdomen Pelvis W Contrast CLINICAL INDICATION: Female, 19 years old. lower abdomen pain TECHNIQUE: CT abdomen and pelvis was performed, after the administration of IV contrast, as per depar count [facility]. Axial, sagittal and coronal reconstructions were obtained. One or more of the following dose reduction techniques were used: Automated exposure control, adjustment of the mA and k V according to patient size, and iterative reconstruction. Unless otherwise specified, incidental findings do not require dedicated imaging follow-up. COMPARISON: 07/25/2023 FINDINGS: LOWER CHEST: The visualized lung bases are clear. LIVER: Normal in size and contour. No focal lesion. BILIARY SYSTEM: Status post cholecystectomy. SPLEEN: Normal size. No focal lesion. PANCREAS: No mass, ductal dilation, or deyanira-pancreatic fluid. ADRENALS: Normal; no mass. KIDNEYS: Normal size and contour. No hydronephrosis. URINARY BLADDER: Unremarkable. GASTROINTESTINAL TRACT: No evidence of free air, bowel obstruction or abscess. Trace pelvic free flu id, likely physiologic. APPENDIX: Normal appendix. LYMPH NODES: No lymphadenopathy. MUSCULOSKELETAL: No acute or suspicious osseous abnormality. ADDITIONAL FINDINGS: Mild thickening and heterogeneity along the posterior uterine wall, may suggest fibroid. Right adnexal ovoid margin enhancing 2 cm dominant cyst or follicle.. IMPRESSION: No acute or concerning abnormalities seen in the abdomen or pelvis. Incidental findings as above.
--- NOTE | 2024-09-11 20:12 | EDPHYS ---
Physician Documentation [facility] Name: Rebeca Juan Age: 19 yrs Sex: Female : 2005 Arrival Date: 09/11/2024 Time: 14:37 Bed 9 Private MD: DANNIE Physician Mikhail Osorio HPI: 09/11 16:10 This 19 yrs old Female presents to ER via Ambulatory with complaints of cp Abdominal Pain. 16:10 The patient presents with abdominal pain in the lower abdomen, right worse than left. cp Onset: The symptoms/episode began/occurred last year, around May after having surgery to remove gallbladder. The symptoms do not radiate. 16:10 Associated signs and symptoms: Pertinent negatives: anorexia, constipation, diarrhea, cp fever, hematuria, vaginal discharge, vomiting, vaginal bleeding. 16:10 The symptoms are described as waxing/waning. 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 - Infectious Disease History:: Denies. - Social history:: Smoking status: Patient denies any tobacco usage or history of. ROS: 16:11 Abdomen/GI: Positive for abdominal pain, of the right lower quadrant and left lower cp quadrant, Negative for vomiting, diarrhea, constipation, 16:11 : Negative for urinary symptoms, flank pain, vaginal bleeding, 16:11 Eyes: Negative for injury, pain, redness, and discharge, cp 16:11 Constitutional: Negative for body aches, chills, fever, poor PO intake, 16:11 ENT: Negative for drainage from ear(s), ear pain, sore throat, difficulty swallowing, difficulty handling secretions, 16:11 Cardiovascular: Negative for chest pain, palpitations, 16:11 Respiratory: Negative for cough, shortness of breath, wheezing, 16:11 Back: Negative for radiated pain, 16:11 All other systems are negative, Exam: 16:15 Constitutional: The patient appears in no acute distress, alert, awake, non-toxic, well cp developed, well nourished, 16:15 Head/Face: Normocephalic, atraumatic. cp 16:15 Eyes: Periorbital structures: appear normal, Conjunctiva: normal, no exudate, no injection, Sclera: no appreciated abnormality, Lids and lashes: appear normal, bilaterally, 16:15 ENT: External ear(s): are unremarkable, Nose: is normal, Mouth: Lips: moist, Oral mucosa: moist, Posterior pharynx: Airway: no evidence of obstruction, patent, 16:15 Chest/axilla: Inspection: normal, 16:15 Cardiovascular: Rate: normal, Rhythm: regular, 16:15 Respiratory: the patient does not display signs of respiratory distress, Respirations: normal, no use of accessory muscles, no retractions, labored breathing, is not present, Breath sounds: are clear throughout, no decreased breath sounds, no stridor, no wheezing, 16:15 Abdomen/GI: Inspection: abdomen appears normal, Bowel sounds: active, all quadrants, Palpation: soft, in all quadrants, mild abdominal tenderness, in the right lower quadrant, rebound tenderness, is not appreciated, involuntary guarding, is not appreciated, Vital Signs: 14:48 BP 131 / 95; Pulse 69; Resp 15; Temp 98.1; Pulse Ox 97% ; Weight 53.98 kg; Height 5 ft. me1 4 in. ; Pain 7/10; 20:37 BP 127 / 88; Pulse 64; Resp 16; Pulse Ox 98% ; cp4 14:48 Body Mass Index 20.43 (53.98 kg, 162.56 cm) me1 14:48 Pain Scale: Adult me1 MDM: 14:58 Medical Screening Exam initiated cp 20:10 Data reviewed: vital signs, nurses notes, lab test result(s), radiologic studies, CT cp scan, ultrasound, and as a result, I will discharge patient. 20:10 Differential diagnosis: appendicitis, non-specific abd pain, Ovarian Torsion, Pelvic cp Inflammatory Disease, Pyelonephritis, Ureterolithiasis, urinary tract infection. Response to treatment: the patient's symptoms have mildly improved after treatment, and as a result, I will discharge patient. Special discussion: Based on the patient's Hx, exam, and Dx evaluation, there is no indication for emergent surgery or inpatient Tx. It is understood by the patient/guardian that if the Sx's persist or worsen they need to return immediately for re-evaluation. 09/11 14:42 Order name: Urinalysis W/Microscopic; Complete Time: 18:08 cp 09/11 18:08 Interpretation: Normal except: UKET 3+; UBLD Trace. cp 09/11 14:42 Order name: Test, Urine; Complete Time: 18:08 cp 09/11 18:09 Interpretation: Reviewed. cp 09/11 15:12 Order name: CBC with Diff; Complete Time: 18:31 cp 09/11 18:31 Interpretation: Reviewed. cp 09/11 15:12 Order name: CMP; Complete Time: 18:31 cp 09/11 18:31 Interpretation: Normal except: CL 109; AST < 10. cp 09/11 15:12 Order name: Lipase; Complete Time: 18:31 cp 09/11 16:12 Order name: US Transvaginal Study (Probe); Complete Time: 18:08 cp 09/11 18:09 Interpretation: Reviewed report. cp 09/11 18:10 Order name: CT Abd/Pelvis - IV Contrast Only; Complete Time: 20:03 cp 09/11 20:03 Interpretation: Report reviewed. cp 09/11 15:12 Order name: IV Saline Lock; Complete Time: 18:04 cp 09/11 15:12 Order name: Labs collected and sent; Complete Time: 18:04 cp Administered Medications: 18:45 Drug: Ketorolac IVP 15 mg IVP once Route: IVP; Site: left antecubital; ap3 20:36 Follow up: Response: No adverse reaction cp4 18:45 Drug: NS 0.9% IV 1000 ml IV at 1000 ml once; to be given as a bolus over 60 minutes ap3 Route: IV; Rate: 1000 ml; Site: left antecubital; 20:36 Follow up: IV Status: Completed infusion cp4 Disposition Summary: 09/11/24 20:11 Discharge Ordered Notes: Location: Home cp Problem: new cp Symptoms: have improved cp Condition: Stable cp Diagnosis - Lower abdominal pain, unspecified cp Followup: cp - With: Private Physician - When: 2 - 3 days - Reason: Worsening of condition Discharge Instructions: - Discharge Summary Sheet cp - Abdominal Pain, Adult cp Forms: - Medication Reconciliation Form cp - Antibiotic Education cp - Prescription Opioid Use cp - Patient Portal Instructions cp - Leadership Thank You Letter cp Prescriptions: - Ibuprofen 600 mg Oral tablet - take 1 tablet ORAL route every 8 hours As needed take with food; 30 tablet; cp Refills: 0, Product Selection Permitted Addendum: 09/12/2024 23:25 Co-signature as Attending Physician, Mikhail Osorio MD I agree with the assessment and c benitez plan of care. Signatures: Dispatcher [employer] Mikhail Emery MD MD cha Page, Corey, PA Alexa Snyder cp RN RN ap3 Samaria Diego RN RN me1 Pamela Webb cp4 Corrections: (The following items were deleted from the chart) 09/11 14:42 14:42 Urinalysis W/Microscopic+U.LAB.BRZ ordered. EDMS EDMS 14:42 14:42 Test, Urine+UC.LAB.BRZ ordered. EDMS EDMS
--- NOTE | 2024-09-11 20:12 | ER ---
Nurse's Notes [facility] Name: Rebeca Juan Age: 19 yrs Sex: Female : 2005 Arrival Date: 09/11/2024 Time: 14:37 Bed 9 Private MD: Diagnosis: Lower abdominal pain, unspecified Presentation: 09/11 14:48 Chief complaint: Patient states: LLQ and RLQ pain, intermittent, started a couple of me1 months ago but has worsened. Denies n/v/d. [facility] 08/25/24. Coronavirus screen: Vaccine status: Patient reports being unvaccinated. Ebola Screen: No symptoms or risks identified at this time. Initial Sepsis Screen: Does the patient meet any 2 criteria? No. Patient's initial sepsis screen is negative. Does the patient have a suspected source of infection? No. Patient's initial sepsis screen is negative. Risk Assessment: Do you want to hurt yourself or someone else? Patient reports no desire to harm self or others. Onset of symptoms is unknown. 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 - Infectious Disease History:: Denies. - Social history:: Smoking status: Patient denies any tobacco usage or history of. Screenin:08 [facility] ED Fall Risk Assessment (Adult) History of falling in the last 3 months, iw including since admission No falls in past 3 months (0 pts) Confusion or Disorientation No (0 pts) Intoxicated or Sedated No (0 pts) Impaired Gait No (0 pts) Mobility Assist Device Used No (0 pt) Altered Elimination No (0 pt) Score/Fall Risk Level 0 - 2 = Low Risk Oriented to surroundings, Maintained a safe environment. Abuse screen: Denies threats or abuse. Denies injuries from another. Nutritional screening: No deficits noted. Tuberculosis screening: No symptoms or risk factors identified. Assessment: 18:08 General: Appears in no apparent distress. Behavior is calm, cooperative. Pain: iw Complains of pain in left lower quadrant and right lower quadrant. Neuro: Level of Consciousness is awake, alert, obeys commands, Oriented to person, place, time, situation, Moves all extremities. Full function. Cardiovascular: Patient's skin is warm and dry. Respiratory: Respiratory effort is even, unlabored, Respiratory pattern is regular. GI: Abdomen is non-distended, Abd is soft X 4 quads Reports lower abdominal pain. Derm: Skin is intact, is healthy with good turgor. Musculoskeletal: Range of motion: intact in all extremities. 18:46 General: Appears in no apparent distress. Behavior is calm, cooperative, appropriate ap3 for age. Pain: Complains of pain in abdomen Pain began gradually. Neuro: Level of Consciousness is awake, alert, obeys commands, Oriented to person, place, time, situation, Appropriate for age Gait is steady, Speech is normal. Cardiovascular: Patient's skin is warm and dry. Respiratory: Airway is patent Respiratory effort is even, unlabored, Respiratory pattern is regular, symmetrical. GI: Reports lower abdominal pain. 20:07 Reassessment: Patient appears in no apparent distress at this time. No changes from cp4 previously documented assessment. Patient and/or family updated on plan of care and expected duration. Pain level reassessed. Patient is alert, oriented x 3, equal unlabored respirations, skin warm/dry/pink. Vital Signs: 14:48 BP 131 / 95; Pulse 69; Resp 15; Temp 98.1; Pulse Ox 97% ; Weight 53.98 kg; Height 5 ft. me1 4 in. ; Pain 7/10; 20:37 BP 127 / 88; Pulse 64; Resp 16; Pulse Ox 98% ; cp4 14:48 Body Mass Index 20.43 (53.98 kg, 162.56 cm) me1 14:48 Pain Scale: Adult me1 ED Course: 14:41 Patient arrived in ED. al6 14:41 Mikhail Lawrence PA is PHCP. cp 14:41 Mikhail Osorio MD is Attending Physician. cp 14:50 Triage completed. me1 14:50 Arm band placed on Patient placed in waiting room. me1 16:10 Samaria Diego, PAUL is Primary Nurse. me1 16:15 Test, Urine Sent. me1 16:15 Urinalysis W/Microscopic Sent. me1 16:15 Urine collected: clean catch specimen, cloudy. me1 17:10 US Transvaginal Study (Probe) In Process Unspecified. EDMS 18:09 Patient has correct armband on for positive identification. Provided Education on: . 18:10 Initial lab(s) drawn, by me, sent to lab. Inserted saline lock: 22 gauge in left iw antecubital area, using aseptic technique. Blood collected. Flushed with 10 mL NS. 18:58 CT Abd/Pelvis - IV Contrast Only In Process Unspecified. EDMS 20:37 No provider procedures requiring assistance completed. intact, bleeding controlled, No cp4 redness/swelling at site. Pressure dressing applied. Administered Medications: 18:45 Drug: Ketorolac IVP 15 mg IVP once Route: IVP; Site: left antecubital; ap3 20:36 Follow up: Response: No adverse reaction cp4 18:45 Drug: NS 0.9% IV 1000 ml IV at 1000 ml once; to be given as a bolus over 60 minutes ap3 Route: IV; Rate: 1000 ml; Site: left antecubital; 20:36 Follow up: IV Status: Completed infusion cp4 Medication: 18:09 VIS not applicable for this client. Outcome: 20:11 Discharge ordered by MD. cp 20:37 Discharged to home ambulatory, cp4 20:37 Condition: stable 20:37 Discharge instructions given to patient, family, Instructed on discharge instructions, follow up and referral plans. medication usage, Demonstrated understanding of instructions, follow-up care, medications, Prescriptions given X 1, 20:38 Patient left the ED. cp4 Signatures: Dispatcher [employer] EDGA Bronwyn Umanzor, RN RN Mikhail Lawrence PA PA cp Alexa Nice RN RN ap3 Samaria Diego RN RN me1 Pamela Webb cp4 Sadia Arias6
[2024-09-11 20:56] VITALS: TEMP 98.1
[2024-09-11 21:06] VITALS: BP 127/88; O2SAT 98
== END 2024-09-11 20:38 | disposition home or self-care (01) ==
LOC: ER 14:37
DX: R10.31 Right lower quadrant pain (principal)
CPT/HCPCS: 96361; 85025; 81001; 36415; 81025; 83690; 80053; 74177; 76830; 96374; 99284; Q9967; J7030

== ENCOUNTER 2024-10-27 19:01 | Inpatient (IN) | payer OTHER ==
--- OUTSIDE RECORDS SUMMARY | 2024-10-27 19:03 | XMS REPORT | Continuity of Care Document ---
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 Name Role Phone PCP, PATIENT DOES NOT HAVE A Primary Care Physic lisa Unavailable WILFRID GAGNON Attending Clinician Unavail able GURPREET MARTINEZ Attending Clinician Unavailable Lars Elise MD Attending Clinician [phone] LARS ELISE Attending Clinician Helio horner Doctor Unassigned, [place] Attending Clinician U navailable LARS ELISE Admitting Clinician Helio horner Payers Payer Name Policy Type Policy Number Effective Date Expirati on Date Source [employer] 2 [id number] 2020 00:00:00 Allergies, Adverse Reactions, Alerts Allergy Name Allergy Type Status Severity Reaction(s) Onset Date Inactive Date Treating Clinician Comments Source NO KNOWN ALLERGIE S Drug Class Active [facility] Social History Social Habit Start Date Stop Date Quantity Comments Source Sexual orientation Jaime Gillis - External ASSERTION Not Liliana Gillis - External Alcoholic beverage intake 2024-10-08 00:00:00 2024-10-08 00:00:00 Liliana Gillis - External History of Social function 2024-10-08 00:00:00 2024-10-08 00:00:00 Liliana Gillis - External Sex 2012[birth year]08-21 19:47:02 2012-08-21 19:47:02 Female (finding) Liliana Gillis - External Sex assigned at 2005 00:00:00 2005 00:00:00 Liliana Gillis - External Smoking Status Start Date Stop Date Source Never smoked tobacco Liliana Alvarez External Tobacco smoking consumption unknown [facility] Medications Ordered Medication Name Filled Medication Name Start Date Stop Date Current Medication? Ordering Clinician Indication Dosage Frequency Signature (SIG) Comments Components Source hydrOXYzine HCl 25 MG oral Tablet 10-08 13:54: 00 Yes [id number] 25mg Take 1 tablet (25 mg total) by mouth once for 1 dose. Liliana Alvarez Externa l Pseudoeph-B romphen-DM (BROMFED DM) 30-2-10 MG/5ML oral Syrup 2018-08 00:00: 00 10-08 00:00 :00 No [id number] 10mL [id number] 3D Take 10 mL by mouth every 8 hours as needed (cough, nasal congestion ) Liliana Billings l Immunizations Ordered Immunization Name Filled Immunization Name Date Status Comments Source Tdap- (Boostrix, Adacel) Unknown Completed Liliana Gillis - External Meningococcal Vaccine- Conjugate(Menactra) Unknown Completed Liliana bonilla - External HPV 9 (Human Papillomavirus) Unknown Completed Liliana bowens - External Vital Signs Vital Name Observation Time Observation Value Comments S ouradrienne Systolic blood pressure 2024-10-08 19:27:00 124 mm[Hg] Liliana Guillen ld - External Diastolic blood pressure 2024-10-08 19:27:00 80 mm[Hg] Liliana bowens - External Heart rate 2024-10-08 19:27:00 80 /min Renae Gillis - External Body temperature 2024-10-08 19:27:00 37 Tori Liliana Gillis - External Body weight 2024-10-08 19:27:00 54.885 kg Lora Gillis - External Procedures Procedure Date / Time Performed Performing Clinicia n Source US ABDOMEN LIMITED 2023-09-27 16:44:[address] [facility] ASSIGNMENT OF BENEFITS 2023-09-27 15:37:58 Docto r Unassigned, [place] [facility] Encounters Start Date/Time End Date/Time Encounter Type Admission Type Attending [facility] Facility Care Department Encounter ID Source 2024-11-06 08:30:00 2024-11-06 08:30:00 Outpatient WILFRID GAGNON [id number] [facility] 2024-10-22 08:30:00 2024-10-22 08:30:00 Outpatient WILFRID GAGNON [id number] [facility] 2024-10-11 10:20:00 2024-10-11 10:20:00 Outpatient GURPREET HOWE [facility] [id number] [facility] 2024-10-08 13:30:00 2024-10-08 13:30:00 Outpatient WILFRID GAGNON [id number] [facility] 2024-09-11 00:00:00 2024-09-11 00:00:00 Outpatient WILFRID GAGNON [id number] [facility] 2023-12-27 08:30:00 2023-12-27 08:30:00 Outpatient WILFRID GAGNON [id number] [facility] 2023-09-27 09:41:23 2023-09-27 23:59:00 Hospital Encounter Lars Guillen [facility] [id number] [facility] 2023-09-27 09:41:23 2023-09-27 23:59:00 Outpatient LARS STEINBERG [facility] [id number] [facility] 2023-09-27 09:41:23 2023-09-27 23:59:00 Outpatient LARS STEINBERG [facility] [id number] [facility] 2023-09-27 00:00:00 2023-09-27 00:00:00 Orders Only Doctor Unassigned, [place] [facility] [id number] [facility] 2023-09-20 00:00:00 2023-09-20 00:00:00 Outpatient R LARS GUILLEN [facility] [id number] [facility] Results Test Description Test Time Test [...] could be a signof chronic dysfunctioning gallbladder. [facility] Notes Date/Time Note Provider Source 2024-10-08 13:28:22 Chief Complaint Patient presents with Pelvic Pain C/o lower pelvic pain x 1 month Beulah Torres MA [facility]
[2024-10-27 19:37] LABS: Specific Gravity 1.013 (1.005-1.030); Sqamous Epithelial <5 /HPF (None Seen); Urine Bacteria None Seen /HPF (<20); Urine Bilirubin NEGATIVE (Negative); Urine Blood Trace (Negative); Urine Clarity Clear (Clear); Urine Color Colorless (Yellow); Urine Culture Reflex Order NOT NEEDED; Urine Glucose NEGATIVE (Negative); Urine Ketones 2+ (Negative); Urine Microscopic Reflex YN ORDER UMIC; Urine Mucus Slight /HPF (None Seen); Urine Nitrite NEGATIVE (Negative); Urine Protein NEGATIVE (Negative); Urine RBC <5 /HPF (None Seen); Urine Urobilinogen Normal (Normal); Urine WBC <5 /HPF (<5); Urine Yeast (Budding) Trace /HPF (None Seen)
[2024-10-27 19:50] LABS: Absolute Basophils 0.1 K/uL (0-0.5); Absolute Eosinophils 0.2 K/uL (0-0.5); Absolute Lymphocytes (CBC) 3.2 K/uL (0.7-4.9); Absolute Monocytes 0.4 K/uL (0.1-1.3); Absolute Neutrophil 5.8 K/uL (1.8-8.0); Basophils % 1.1 % (0-1.3); Eosinophils % 2.2 % (0-4.4); Hematocrit 40.7 % (36.0-45.0); Hemoglobin 13.7 g/dL (12.0-15.0); Lymphocytes % 32.9 % (15.3-44.8); MCH 29.3 pg (27.0-35.0); MCHC 33.6 g/dL (32.0-36.0); MCV 87.1 fL (80-100); MPV 7.8 fL (7.6-11.3); Neutrophils % 59.8 % (41.7-73.7); Platelets 304 thou/uL (152-406); RBC Red Blood Cell Count 4.67 M/uL (3.86-4.86); Red Cell Distribution Width 12.6 % (12.1-15.2)
[2024-10-27] MEDS ORDERED: ONDANSETRON 4 MG/2 ML VIAL ONE (19:51)
[2024-10-27] MEDS ORDERED: NA CHLORIDE 0.9% 1,000 ML ONE ×2 (19:52→22:20)
[2024-10-27] MEDS ORDERED: MORPHINE 4 MG/ML SYR ONE (19:52)
[2024-10-27 20:06] LABS: Albumin 4.3 g/dL (3.4-5.0); Albumin/Globulin Ratio 1.2 (1.1-1.8); Anion Gap 9.6 mEq/L (5.0-15.0); Bilirubin Total 0.6 mg/dL (0.2-1.0); Globulin 3.6 g/dL (2.3-3.5); Potassium 3.6 mEq/L (3.5-5.1); Protein, Total 7.9 g/dL (6.4-8.2)
[2024-10-27] MEDS ORDERED: KETOROLAC 30 MG/ML INJ ONE (20:06)
--- NOTE | 2024-10-27 20:50 | RAD REPORT ---
EXAMINATION: CT ABDOMEN AND PELVIS WITH CONTRAST CLINICAL INDICATION: Abd pain;Flank pain TECHNIQUE: CT abdomen and pelvis was performed, after the administration of IV contrast, as per [facility] protocol. Axial, sagittal and coronal reconstructions were obtained. One or more of the following dose reduction techniques were used: Automated exposure control, adjustment of the mA and k V according to patient size, and iterative reconstruction. Unless otherwise specified, incidental findings do not require dedicated imaging follow-up. COMPARISON: No prior exam. FINDINGS: LOWER CHEST: The visualized lung bases are clear. LIVER: Normal in size and contour. No focal lesion. Cholecystectomy clips. SPLEEN: Normal size. No focal lesion. PANCREAS: No mass, ductal dilation, or deyanira-pancreatic fluid. ADRENALS: Normal; no mass. KIDNEYS: Normal size and contour. No hydronephrosis. GASTROINTESTINAL TRACT: No evidence of free air, significant intra-abdominal free fluid, bowel obstru ction or abscess. APPENDIX: Upper limit of normal appendix measuring 6 and 7 mm with a small amount of surrounding reti culation of fat. LYMPH NODES: No lymphadenopathy. MUSCULOSKELETAL: No acute or suspicious osseous abnormality. ADDITIONAL FINDINGS: None. IMPRESSION: Upper limit of normal appendix with slight reticulation adjacent fat. Early appendicitis is possible but not definitive. CT follow-up in 24/48 hours with oral contrast could be considered if symptomatology does persist.
--- NOTE | 2024-10-27 21:14 | EDPHYS ---
Physician Documentation [facility] Name: Rebeca Juan Age: 19 yrs Sex: Female : 2005 Arrival Date: 10/27/2024 Time: 19:01 Bed 13 Private MD: ED Physician Mikhail Osorio HPI: 10/27 19:21 This 19 yrs old Female presents to ER via Unassigned with complaints of dr5 Abdominal Pain. 19:21 The patient presents with abdominal pain Right flank. Patient is a 19-year-old female dr5 with history of cholecystectomy coming in with right flank pain this been going on for the past 3 hours. Patient states she had a cholecystectomy last year completed. No dysuria. No hematuria.. 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 - Infectious Disease History:: Denies. - Social history:: Smoking status: Patient denies any tobacco usage or history of. ROS: 19:56 Constitutional: as per hpi dr5 Exam: 19:56 Constitutional: This is a well developed, well nourished patient who is awake, alert, dr5 and in no acute distress. Head/Face: Normocephalic, atraumatic. Neck: Trachea midline, no thyromegaly or masses palpated, and no cervical lymphadenopathy. Supple, full range of motion without nuchal rigidity, or vertebral point tenderness. No Meningismus. Chest/axilla: Normal chest wall appearance and motion. Nontender with no deformity. No lesions are appreciated. Cardiovascular: Regular rate and rhythm with a normal S1 and S2. Normal PMI, no JVD. No pulse deficits. Respiratory: Lungs have equal breath sounds bilaterally, clear to auscultation. No rales, rhonchi or wheezes noted. No increased work of breathing, no retractions or nasal flaring. Back: No spinal tenderness. No costovertebral tenderness. Full range of motion. Skin: Warm, dry with normal turgor. Normal color with no rashes, no lesions, and no evidence of cellulitis. Neuro: Awake and alert, GCS 15, oriented to person, place, time, and situation. Cranial nerves II-XII grossly intact. Motor strength 5/5 in all extremities. Sensory grossly intact. Cerebellar exam normal. Normal gait. 19:56 Abdomen/GI: Inspection: abdomen appears normal, Bowel sounds: normal, Palpation: abdomen is soft and non-tender, in all quadrants, Vital Signs: 19:17 BP 137 / 96; Pulse 84; Resp 18; Temp 98.9; Pulse Ox 100% ; Weight 54.43 kg; Height 5 dd2 ft. 4 in. ; Pain 7/10; 20:03 BP 108 / 70; Pulse 81; Resp 17; Pulse Ox 99% on R/A; Pain 6/10; rg5 21:00 BP 121 / 78; Pulse 94; Resp 17; Pulse Ox 100% ; rg5 19:17 Body Mass Index 20.60 (54.43 kg, 162.56 cm) dd2 19:17 Pain Scale: Adult dd2 20:03 Pain Scale: Adult rg5 MDM: 19:04 Medical Screening Exam initiated dr5 19:56 Differential diagnosis: gastroesophageal reflux disease, non-specific abd pain, Kidney dr5 stone, UTI. 19:59 Transition of care: After a detail discussion of the patient's case, care is dr5 transferred to Marcella Franz PA-C. 21:18 Data reviewed: vital signs, nurses notes, lab test result(s), radiologic studies, and sb4 as a result, I will admit patient. Consideration of Admission/Observation Patient was admitted/placed on observation. Counseling: I had a detailed discussion with the patient and/or guardian regarding the historical points, exam findings, and any diagnostic results supporting the discharge/admit diagnosis, lab results, radiology results, the need for further work-up and treatment in the hospital. 10/27 19:19 Order name: CBC with Diff; Complete Time: 19:55 [facility] 10/27 19:19 Order name: CMP; Complete Time: 20:07 [facility] 10/27 19:19 Order name: Urinalysis w/ reflexes; Complete Time: 19:39 dr5 10/27 19:33 Order name: Test, Urine; Complete Time: 19:39 EDCA 10/28 05:03 Order name: CBC with Automated Diff; Complete Time: 07:06 EDCA 10/27 20:07 Order name: CT Abd/Pelvis - IV Contrast Only; Complete Time: 20:52 sb4 10/28 07:26 Order name: CT EDMS 10/27 19:19 Order name: IV Saline Lock; Complete Time: 19:41 dr5 10/27 19:19 Order name: Labs collected and sent; Complete Time: 19:41 dr5 Administered Medications: 19:45 Drug: Ondansetron IVP 4 mg IVP once; over 2 minutes Route: IVP; Site: right antecubital;rg5 20:16 Follow up: Response: No adverse reaction rg5 19:45 Drug: morphine IVP or IV 4 mg IVP once over 4 mins Route: IVP; Infused Over: 4 mins; rg5 Site: right antecubital; 20:16 Follow up: Response: No adverse reaction; Pain is decreased rg5 19:45 Drug: NS 0.9% IV 1000 ml IV at 1 bolus Per protocol; to be given as a bolus over 60 rg5 minutes Route: IV; Rate: 1 bolus; Site: right antecubital; 22:00 Follow up: IV Status: Completed infusion; IV Intake: 1000ml rg5 20:00 Drug: Ketorolac IVP 15 mg IVP once Route: IVP; Site: right antecubital; rg5 21:13 Follow up: Response: No adverse reaction; Pain is unchanged, physician notified rg5 21:19 Drug: fentaNYL (PF) IVP 50 mcg IVP once Route: IVP; Site: right antecubital; rg5 22:12 Follow up: Response: No adverse reaction; Pain is decreased rg5 Disposition Summary: 10/27/24 21:13 Hospitalization Ordered Notes: Hospitalization Status: Observation sb4 Provider: Venkat Davidson sb4 Condition: Fair sb4 Problem: new sb4 Symptoms: are unchanged sb4 Bed/Room Type: Standard sb4 Location: Telemetry/MedSurg (observation)(10/28/24 10:54) bd Room Assignment: 420(10/28/24 10:54) bd Diagnosis - Unspecified acute appendicitis - early sb4 Forms: - Medication Reconciliation Form sb4 - SBAR form sb4 - Leadership Thank You Letter sb4 Addendum: 10/29/2024 15:35 Co-signature as Attending Physician, Mikhail Osorio MD I agree with the assessment and c benitez plan of care. Signatures: Dispatcher [employer] EDMS Dirrim, Rachel bd Mikhail Osorio MD MD cha Nieto, Roman, MD MD rn Brown, Sophia, PA-C PA-C sb4 Conner, Kimmy vk Liu Beck, RN RN rg5 THERESA TAVAREZ RN RN dd2 Hal Wilkes, READING RECOVERY TEACHER-C READING RECOVERY TEACHER-Cdr5 Corrections: (The following items were deleted from the chart) 10/27 19:33 19:20 TEST, SERUM+SC.LAB.BRZ ordered. EDMS EDMS 20:15 19:30 Stone Protocol+CT.RAD.BRZ ordered. EDMS EDMS 21:25 21:13 sb4 vk 23:37 21:13 Telemetry/MedSurg (observation) sb4 vk 23:37 21:25 201 vk vk 23:39 23:37 vk vk 10/28 10:54 10/27 23:37 [facility] ER HOLD vk bd 10/28 10:54 10/27 23:39 ERHOLD- vk bd
--- NOTE | 2024-10-27 21:14 | ER ---
Nurse's Notes [facility] Name: Rebeca Juan Age: 19 yrs Sex: Female : 2005 Arrival Date: 10/27/2024 Time: 19:01 Bed 13 Private MD: Diagnosis: Unspecified acute appendicitis-early Presentation: 10/27 19:23 Chief complaint: Patient states: RT FLANK PAIN X3 HOURS WITH NAUSEA. Coronavirus dd2 screen: At this time, the client does not indicate any symptoms associated with coronavirus-19. Ebola Screen: No symptoms or risks identified at this time. Initial Sepsis Screen: Does the patient meet any 2 criteria? No. Patient's initial sepsis screen is negative. Does the patient have a suspected source of infection? No. Patient's initial sepsis screen is negative. Risk Assessment: Do you want to hurt yourself or someone else? Patient reports no desire to harm self or others. Onset of symptoms was October 27, 2024. 19:23 Method Of Arrival: Ambulatory dd2 19:23 Acuity: JANINE 3 dd2 Triage Assessment: 19:24 General: Appears in no apparent distress. uncomfortable, Behavior is calm, cooperative, dd2 appropriate for age. Pain: Complains of pain in posterior aspect of right lateral abdomen Pain currently is 7 out of 10 on a pain scale. GI: Abdomen is non-distended, Bowel sounds present X 4 quads. Abd is soft and non tender. : Urine is clear, Reports pain in right flank(s). 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 - Infectious Disease History:: Denies. - Social history:: Smoking status: Patient denies any tobacco usage or history of. Screenin:40 [facility] ED Fall Risk Assessment (Adult) History of falling in the last 3 months, rg5 including since admission No falls in past 3 months (0 pts) Confusion or Disorientation No (0 pts) Intoxicated or Sedated No (0 pts) Impaired Gait No (0 pts) Mobility Assist Device Used No (0 pt) Altered Elimination No (0 pt) Score/Fall Risk Level 0 - 2 = Low Risk Oriented to surroundings, Maintained a safe environment, Hourly rounding (assess needs \T\ fall precautionary measures) done. Abuse screen: Denies threats or abuse. Nutritional screening: No deficits noted. Tuberculosis screening: No symptoms or risk factors identified. Assessment: 19:40 General: Appears in no apparent distress. comfortable, Behavior is calm, cooperative, rg5 appropriate for age. 19:40 Pain: Complains of pain in abdomen Pain currently is 7 out of 10 on a pain scale. rg5 Quality of pain is described as aching, Pain began 4 hours ago. Neuro: Level of Consciousness is awake, alert, obeys commands, Oriented to person, place, time, situation. Cardiovascular: Denies chest pain, Capillary refill < 3 seconds Patient's skin is warm and dry. Respiratory: Airway is patent Trachea midline Respiratory effort is even, unlabored. GI: Abdomen is flat, Abd is soft and non tender Reports lower abdominal pain, diarrhea, nausea. : No signs and/or symptoms were reported regarding the genitourinary system. EENT: No signs and/or symptoms were reported regarding the EENT system. Derm: Skin is intact, Skin is dry, Skin is normal, Skin temperature is warm. Musculoskeletal: Circulation, motion, and sensation intact. Range of motion: intact in all extremities. 20:03 Reassessment: No changes from previously documented assessment. Patient and/or family rg5 updated on plan of care and expected duration. Pain level reassessed. Patient is alert, oriented x 3, equal unlabored respirations, skin warm/dry/pink. 21:01 Reassessment: No changes from previously documented assessment. Patient and/or family rg5 updated on plan of care and expected duration. Pain level reassessed. Patient is alert, oriented x 3, equal unlabored respirations, skin warm/dry/pink. 22:00 Reassessment: No changes from previously documented assessment. Patient and/or family rg5 updated on plan of care and expected duration. Pain level reassessed. Patient is alert, oriented x 3, equal unlabored respirations, skin warm/dry/pink. Vital Signs: 19:17 BP 137 / 96; Pulse 84; Resp 18; Temp 98.9; Pulse Ox 100% ; Weight 54.43 kg; Height 5 dd2 ft. 4 in. ; Pain 7/10; 20:03 BP 108 / 70; Pulse 81; Resp 17; Pulse Ox 99% on R/A; Pain 6/10; rg5 21:00 BP 121 / 78; Pulse 94; Resp 17; Pulse Ox 100% ; rg5 19:17 Body Mass Index 20.60 (54.43 kg, 162.56 cm) dd2 19:17 Pain Scale: Adult dd2 20:03 Pain Scale: Adult rg5 ED Course: 19:03 Patient arrived in ED. mr 19:03 Hal Wilkes FNP-C is PHCP. dr5 19:03 Mikhail Osorio MD is Attending Physician. dr5 19:24 Triage completed. dd2 19:24 Arm band placed on right wrist. dd2 19:40 Patient has correct armband on for positive identification. Bed in low position. Call rg5 light in reach. Side rails up X 1. Door closed. Noise minimized. Warm blanket given. 19:40 Inserted saline lock: 20 gauge in right antecubital area, using aseptic technique. oe Blood collected. Flushed with 10 mL NS. 19:40 No provider procedures requiring assistance completed. rg5 19:41 CBC with Diff Sent. oe 19:41 CMP Sent. oe 19:45 Liu Beck, RN is Primary Nurse. rg5 19:57 PHCP role handed off by Hal Wilkes FNP-C sb4 19:57 Marcella Franz PA-C is PHCP. sb4 20:34 CT Abd/Pelvis - IV Contrast Only In Process Unspecified. EDMS 21:13 Venkat Davidson MD is Hospitalizing Provider. sb4 22:00 Awaiting bed assignment. rg5 22:00 Provided Education on: needs for admit. rg5 22:00 Patient admitted, IV remains in place. intact, No redness/swelling at site. rg5 10/28 01:08 Note: CT WILL GIVE ORAL CONTRAST AT [address] ABD/PELVIS AND SCAN PT AT 0630. Note: rs4 PLEASE INFORM CT IF/WHEN PT GETS ADMITTED. Administered Medications: 10/27 19:45 Drug: Ondansetron IVP 4 mg IVP once; over 2 minutes Route: IVP; Site: right antecubital;rg5 20:16 Follow up: Response: No adverse reaction rg5 19:45 Drug: morphine IVP or IV 4 mg IVP once over 4 mins Route: IVP; Infused Over: 4 mins; rg5 Site: right antecubital; 20:16 Follow up: Response: No adverse reaction; Pain is decreased rg5 19:45 Drug: NS 0.9% IV 1000 ml IV at 1 bolus Per protocol; to be given as a bolus over 60 rg5 minutes Route: IV; Rate: 1 bolus; Site: right antecubital; 22:00 Follow up: IV Status: Completed infusion; IV Intake: 1000ml rg5 20:00 Drug: Ketorolac IVP 15 mg IVP once Route: IVP; Site: right antecubital; rg5 21:13 Follow up: Response: No adverse reaction; Pain is unchanged, physician notified rg5 21:19 Drug: fentaNYL (PF) IVP 50 mcg IVP once Route: IVP; Site: right antecubital; rg5 22:12 Follow up: Response: No adverse reaction; Pain is decreased rg5 Medication: 19:40 VIS not applicable for this client. rg5 Intake: 22:00 IV: 1000ml; Total: 1000ml. rg5 Outcome: 21:13 Decision to Hospitalize by Provider. sb4 22:00 Admitted to ER Hold. Please see [facility] for further documentation. rg5 22:00 Condition: stable 22:00 Instructed on the need for admit, 10/28 11:41 Patient left the ED. iw Signatures: Dispatcher [employer] EDKY MckenzieMary aguilar, Reg Reg mr Bronwyn Umanzor, PAUL RN iw Saravanan Hsu Sophia, PA-C PA-C sb4 Zhanna Donis rs4 Liu Beck RN RN rg5 THERESA TAVAREZ RN RN dd2 Hal Wilkes, FLOOR COVERINGS INSTALLER-C FLOOR COVERINGS INSTALLER-Cdr5
[2024-10-27] MEDS ORDERED: FENTANYL CITR 100 MCG/2 ML ONE (21:19)
[2024-10-27] MEDS: NA CHLORIDE 0.9% 1,000 ML IV SCH (22:11)
[2024-10-27 23:18] VITALS: BMI 20.4
[2024-10-28 05:01] LABS: Absolute Eosinophils 0.1 K/uL (0-0.5); Absolute Lymphocytes (CBC) 2.5 K/uL (0.7-4.9); Absolute Monocytes 0.7 K/uL (0.1-1.3); Absolute Neutrophil 4.7 K/uL (1.8-8.0); Basophils % 0.6 % (0-1.3); Eosinophils % 1.7 % (0-4.4); Hematocrit 35.1 % (36.0-45.0); Lymphocytes % 31.6 % (15.3-44.8); MCH 29.7 pg (27.0-35.0); MCHC 34.3 g/dL (32.0-36.0); MCV 86.5 fL (80-100); MPV 7.5 fL (7.6-11.3); Monocytes % 8.2 % (3.3-12.3); Neutrophils % 57.9 % (41.7-73.7); Nucleated Red Blood Cells % 0.1 % (0-0); Platelets 262 thou/uL (152-406); RBC Red Blood Cell Count 4.06 M/uL (3.86-4.86); Red Cell Distribution Width 13.1 % (12.1-15.2)
[2024-10-28] MEDS ORDERED: ONDANSETRON 4 MG/2 ML VIAL ONE (07:11)
[2024-10-28] MEDS ORDERED: MORPHINE 4 MG/ML SYR ONE (07:12)
[2024-10-28] MEDS: MORPHINE 4 MG/ML SYR IV PRN ×2 (07:20→21:59)
[2024-10-28] MEDS: ONDANSETRON 4 MG/2 ML VIAL IV PRN (07:22)
--- NOTE | 2024-10-28 07:26 | RAD REPORT ---
EXAMINATION: CT ABDOMEN AND PELVIS WITHOUT CONTRAST CLINICAL INDICATION: Female, 19 years old.appendicitis TECHNIQUE: CT abdomen and pelvis was performed, without IV contrast, as per department protocol. Axia l, sagittal and coronal reconstructions were obtained. One or more of the following dose reduction techniques were used: Automated exposure control, adjustment of the mA and/or kV according to the pat ient size, and/or iterative reconstruction. Unless otherwise specified, incidental findings do not require dedicated imaging follow-up. [id number]. IV CONTRAST: Not administered. COMPARISON: 10/27/2024 FINDINGS: The lack of intravenous contrast limits the sensitivity of this exam for evaluation of solid visceral organs, vascular structures, and retroperitoneum. LOWER CHEST: No acute process identified.No significant pericardial effusion. UPPER GI: No significant abnormality. LIVER: No significant focal abnormality. GALLBLADDER/BILE DUCTS: Cholecystectomy. Moderate extrahepatic biliary ductal dilatation. This could be secondary to the post-cholecystectomy state. Recommend correlation with LFT's. If abnormal, consider MRCP for further evaluation. ?The common bile duct measures at least 9 mm. PANCREAS: No mass, ductal dilation, or deyanira-pancreatic fluid. SPLEEN: Unremarkable. ADRENALS: No adrenal masses. KIDNEYS AND URETERS: No hydronephrosis.No suspicious renal mass. ABDOMINAL AORTA AND OTHER VESSELS: Normal caliber aorta and IVC. PERITONEUM: No abnormal free fluid. No free air. LYMPH NODES: No pathologic lymphadenopathy. ABDOMINAL WALL: Unremarkable SMALL BOWEL/COLON: Small bowel has normal course and caliber. No colonic wall thickening or pericolon ic inflammatory changes.Normal appendix. Note that the prominence of the appendix on the prior exam is no longer seen. URINARY BLADDER: Underdistended but grossly unremarkable. REPRODUCTIVE ORGANS: No pathologic process. MUSCULOSKELETAL: No acute or suspicious osseous abnormality. ADDITIONAL FINDINGS: None. IMPRESSION: No acute findings within the abdomen or pelvis. Specific, the appendix is normal. Cholecystomy with extrahepatic biliary duct dilatation. Correlate with LFTs. If abnormal, could consi belia MRCP to exclude choledocholithiasis or stricture.
[2024-10-28] MEDS ORDERED: NA CHLORIDE 0.9% 1,000 ML ONE (10:33)
--- NOTE | 2024-10-28 17:17 | RAD REPORT ---
EXAMINATION: MR CHOLANGIOGRAM CLINICAL INDICATION: Female, 19 years old. Abnormal findings on prior CT Radiology recommendation per Stuart TECHNIQUE: Multiplanar, multisequence MR imaging of the abdomen without intravenous contrast, and wit h specific attention to the biliary system. Unless otherwise specified, incidental findings do not require dedicated imaging follow-up. 3D MIP reconstruction performed. COMPARISON: CT abdomen and pelvis 10/28/2024 FINDINGS: GALLBLADDER: Surgically removed. BILE DUCTS: Prominent caliber of the CBD up to 11mm, with smooth tapering. No filling defects. No int rahepatic biliary ductal dilatation. LIVER: Normal in size, contour, and signal without evidence of fatty infiltration or iron deposition. No focal lesion. PANCREAS: Normal signal. No mass, ductal dilation, or deyanira-pancreatic fluid. SPLEEN: Normal size. No focal lesion. ADRENALS: Normal; no mass. KIDNEYS: Normal size and contour. No hydronephrosis. LYMPH NODES: No lymphadenopathy. ADDITIONAL FINDINGS: None. IMPRESSION: Prominent caliber of the CBD up to 11mm, with smooth tapering. No filling defects to suggest calculi.
--- NOTE | 2024-10-28 22:59 | HP ---
Date of Admission: 10/27/2024 History Of Present Illness: This is the case of a 19-year-old patient, known by us due to a cholecys tectomy done last year for right upper quadrant pain. This time, the pain is different. She says in the right lower quadrant and right flank region. It has been there for few hours. Nausea. The in tia CAT scan was inconclusive, but she still has some complaints, so ER called me to see if we can k eep her in observation. She denies any dysuria, hematuria, hematochezia, melena. Denies any recent travel out of the country. Denies any family member sick at home. Denies any vaginal discharge. Th is pain is different from the previous one she had in the past. She is not on her period at this mom ent. Review of Systems: Ten points otherwise unremarkable. Past Medical History: None. Allergies: NONE. Past Surgical History: Cholecystectomy last year, uneventful. Social History: She does not smoke. She does not drink alcohol. Not sexually active. Last menstru al period was 10/22/2024. Physical Examination: General: The patient is awake, alert, cooperative. HEENT: Pupils are equal and reactive. Anicteric. Neck: Supple. Chest: Clear. Abdomen: Soft and depressible. Mild right lower quadrant discomfort, but no guarding. No rebound. No Rovsing signs. No psoas signs. Breasts: Deferred. Pelvic: Deferred. Rectal: Deferred. Extremities: Good capillary refill. Neuro: Cranial nerves 2 through 12 grossly within normal limits. Laboratory Data: Blood work shows WBC count on initial admission 9.7, right now is 8.1; hemoglobin i s 12, coming down from 13; platelets of 262; neutrophils 59.8. Sodium is 137, bicarb is 24, glucose 87. None of the liver enzymes are elevated. Total bilirubin of 0.6, AST 11, ALT 17, alkaline phosph atase 55. Urine test negative. Urine blood is trace. Urine ketones, 2+. The patient has initial CAT scan that was done yesterday and another one today. She even had a CAT scan, 09/11/2024 that showed mild thickening of the posterior uterine wall, may suggest a fibroid uterus. Right adne xal ovoid margin enhancement, could be an ovarian cyst. Now, the CAT scan done yesterday, read by Dr Ann Contreras, shows upper limit of normal appendix with slight reticulation. Early appendicitis is possibl e, but not definitive. Recommend CAT scan, followup, in 24 hours without contrast. The CAT scan was repeated and I discussed the case with Dr. Rendon today and shows no acute findings within the abdomen or pelvis, specifically no appendicitis. Appendix is normal. There is some cholecystectomy in the p ast. There is a mild ductal dilatation. LFTs abnormal, but MRCP should be done as a workup. Assessment: This is a 19-year-old patient with 3 CT scans in the last month. One of them shows a fi broid uterus, probably ovarian cyst. Another one shows borderline appendix, but no definitive eviden ce of appendicitis and the second one shows appendix negative. Plan: We had a long discussion with her and family members. The CAT scan today shows no appendiciti s. We will keep her for observation. It is hard to say if this is musculoskeletal or gastrointestin al or gynecological in origin. The findings that we had before, the possible ovarian cyst and uterin e thickening that had to be addressed with the music video producer as an outpatient. Today, we are going to get MRCP just to make sure biliary system is working properly, but we do not expect at this moment t o be the cause of her pain. If by any chance by tomorrow we see no improvement in her symptoms and c ontinued right lower quadrant pain, then she might have an option of diagnostic laparoscopy, laparosc opic possible open appendectomy with benefits, alternatives, and risks including, but not limited to, infection, bleeding, damage to adjacent structures, anesthesia complication, nonhealing wound, [place], a nd even . She also understands we might not be able to find any appendix. The appendix may be negative. We may not find any intraabdominal abnormalities, so consider this another diagnostic proc edure. There are not ready for that at this moment. They may consider that if we see no improvement in next 24 hours. We ordered the MRCP in the meantime and also will follow results on that. We are going to start a liquid diet. She is hungry. We have no peritonitis, and no guarding or rebound at this moment. If she gets sick, she was asked to just stop that and then we will keep her n.p.o. and proceed according ly. HM/LUCRECIA Voice ID: [id number]
[2024-10-29] MEDS ORDERED: LIDOCAINE 2% MPF 5 ML VIAL ONE (09:56)
[2024-10-29] MEDS ORDERED: ONDANSETRON 4 MG/2 ML VIAL ONE (09:56)
[2024-10-29] MEDS ORDERED: FENTANYL CITR 100 MCG/2 ML ONE ×2 (09:56→10:39)
[2024-10-29] MEDS ORDERED: MIDAZOLAM HCL 2 MG/2 ML INJ ONE (09:56)
[2024-10-29] MEDS ORDERED: ROCURONIUM 50 MG/5 ML VIAL IV ONE (09:56)
[2024-10-29] MEDS ORDERED: propofoL 200 MG/20 ML VIAL IV ONE (09:56)
[2024-10-29] MEDS: CEFOXITIN SODIUM 1 GM/VIAL ONE (10:37)
[2024-10-29] MEDS ORDERED: dexAMETHasone 10 MG/ML VIAL ONE (10:38)
[2024-10-29] MEDS: NA CHLORIDE 0.9% 1,000 ML ONE (11:05)
[2024-10-29] MEDS ORDERED: NEOSTIGMINE 1 MG/ML -10 ML VIAL ONE (11:12)
[2024-10-29] MEDS ORDERED: GLYCOPYRROLATE 0.2 MG/ML SYR ONE (11:12)
[2024-10-29] MEDS ORDERED: KETOROLAC 30 MG/ML INJ ONE (11:12)
--- NOTE | 2024-10-29 11:43 | P.BOP ---
Preoperative diagnosis: acute abdominal pain. appendicitis, ovarian cyst Postoperative diagnosis: same Primary procedure: Diagnostic laparoscopy, laparoscopic appendectomy Estimated blood loss: <10cc Specimen: leigh Findings: assymetrial in shape a color appendix, bilateral ovarian cystwluteal cyst R Anesthesia: General Complications: None Transferred to: Recovery Room Condition: Good
[2024-10-29] MEDS: HYDROMORPHONE HCL 1 MG/ML INJ ONE (11:50)
--- NOTE | 2024-10-29 13:26 | PN ---
Date of Progress Note: 10/29/2024 Reason For Service: Right lower quadrant abdominal pain. Subjective: Ms. Juan is a 19-year-old patient, came to us with abdominal pain. She is on observati on for a length of day and a half. Multiple CT scans overnight. The pain comes back once again to t he point that she was requiring IV pain medication. This morning, she made the decision with the mot her to proceed with diagnostic lap and possible appendectomy now. I discussed with them also in prev ious CT scans few months ago, we noticed also ovarian cyst and some thickening of the uterus may or m ay not be related to this, but if I find those, then she may have to consult her Gynecology. The leigh endix is abnormal and does not show the inflammation on the CAT scan. Does not mean that it is compl etely negative. She preferred to have the appendix removed, so the benefits, alternatives, and risks of diagnostic laparoscopy, possible open appendectomy fully explained to her and the mother which in clude, but not limited to infection, bleeding, damage to adjacent structures, anesthesia complication , negative appendix, [place], even . She also understands this is a diagnostic procedure, may not al leviate any symptoms and she may need more than one surgical intervention. She signed the consent. JAVIER/LUCRECIA Voice ID: [id number] Report ID: [id number]
[2024-10-29] MEDS: CEFOXITIN 1 GM in NA CHLORIDE 0.9% 50 ML IVPB SCH (17:30)
[2024-10-29] MEDS: HYDROCODONE/APAP 5/325 MG TAB PO PRN (17:32)
[2024-10-30 12:24] VITALS: BP 102/63; TEMP 98.4
[2024-10-30 12:32] VITALS: O2SAT 100
--- NOTE | 2024-10-30 15:23 | P.DS ---
Admission Date: 10/29/24 Discharge Date: 10/30/24 Disposition: ROUTINE DISCHARGE Discharge Condition: GOOD Hospital Course: unremerkable Vital Signs/Physical Exam: Temp Pulse Resp BP Pulse Ox 98.4 F 72 18 102/63 99 10/30/24 12:00 10/30/24 12:00 10/30/24 13:47 10/30/24 12:00 10/30/24 13:47 General: Alert, In no apparent distress, Oriented x3, Cooperative HEENT: PERRLA Neck: Supple Respiratory: Normal air movement Cardiovascular: No edema, Normal pulses Gastrointestinal: Soft and benign Musculoskeletal: No erythema, No tenderness, No warmth Integumentary: No rashes, No breakdown, No warmth, No cyanosis Neurological: Normal speech Laboratory Data at Discharge: WBC 8.10 thou/uL (4.3-10.9) 10/28/24 04:50 Hgb 12.0 g/dL (12.0-15.0) D 10/28/24 04:50 Hct 35.1 % (36.0-45.0) L 10/28/24 04:50 Plt Count 262 thou/uL (152-406) 10/28/24 04:50 Sodium 137 mEq/L (136-145) 10/27/24 19:37 Potassium 3.6 mEq/L (3.5-5.1) 10/27/24 19:37 BUN 14 mg/dL (7-18) 10/27/24 19:37 Creatinine 0.69 mg/dL (0.55-1.02) 10/27/24 19:37 Glucose 87 mg/dL (74-106) 10/27/24 19:37 Total Bilirubin 0.6 mg/dL (0.2-1.0) 10/27/24 19:37 AST 11 U/L (15-37) L 10/27/24 19:37 ALT 17 U/L (13-56) 10/27/24 19:37 Alkaline Phosphatase 55 U/L (45-117) 10/27/24 19:37 Home Medications: NK [No Home Meds] 10/28/24 Physician Discharge Instructions: Keep surgical area dry for 24h then may remove outer dressing and shower. Keep sterile strips intact. Diet: Regular Activity: No lifting more than 10 lbs Followup: Venkat Davidson MD [ACTIVE - CAN ADMIT] - 1 Week NONE,NONE [Primary Care Provider] -
== END 2024-10-30 15:53 | disposition home or self-care (01) | DRG 399 ==
LOC: ER 19:01 → ERHOLD 21:14 → 4TH 10-28 11:15 → OBSVTOIN 10-29 10:26
PROVIDERS: ADMIT Surgery; ATTEND Surgery
PROC: 0DTJ4ZZ Resection of Appendix, Percutaneous Endoscopic Approach (ICD-10-PCS; principal; 2024-10-29 11:30)
DX: K35.80 Unspecified acute appendicitis (principal)
CPT/HCPCS: 36415; 74176; 74177; 74181; 80053; 81001; 81025; 85025; 88304; 94010; 96361; 96374; 96375; 99285; J0694; J1100; J1171; J2003; J2250; J2405; J2704; J2710; J3010; J7030; Q9967

== ENCOUNTER 2024-12-28 15:19 | Emergency (ER) | payer OTHER ==
--- OUTSIDE RECORDS SUMMARY | 2024-12-28 15:22 | XMS REPORT | Continuity of Care Document ---
Author Name Unknown Address [address] [place] [address] [address] [place] [address] [facility] Address [address] [place] [address] [address] [place] [address] Care Team Providers Care Hotel Service Manager Name Role Phone PCP, PATIENT DOES NOT HAVE A Primary Care Physic lisa Unavailable WILFRID GAGNON Attending Clinician Unavail able GURPREET MARTINEZ Attending Clinician Unavailable Lars Elise MD Attending Clinician [phone] LARS ELISE Attending Clinician Helio horner Doctor Unassigned, [place] Attending Clinician U navailable LARS ELISE Admitting Clinician Helio horner Payers Payer Name Policy Type Policy Number Effective Date Expirati on Date Source [employer] 2 [id number] 2020 00:00:00 Allergies, Adverse Reactions, Alerts Allergy Name Allergy Type Status Severity Reaction(s) Onset Date Inactive Date Treating Clinician Comments Source NO KNOWN ALLERGIE S Drug Class Active [facility] Social History Social Habit Start Date Stop [...] Liliana Alvarez External Tobacco smoking consumption unknown [facility] Medications Ordered Medication Name Filled Medication Name Start Date Stop Date Current Medication? Ordering Clinician Indication Dosage Frequency Signature (SIG) Comments Components Source hydrOXYzine HCl 25 MG oral Tablet 10-08 13:54: 00 Yes [id number] 25mg Take 1 tablet (25 mg total) by mouth once for 1 dose. Liliana Alvarez Externa l Pseudoeph-B romphen-DM (BROMFED DM) 30-2-10 MG/5ML oral Syrup 2018-08 00:00: 00 10-08 00:00 :00 No [id number] 10mL [id number] 3D Take 10 mL by mouth every [...] US ABDOMEN LIMITED 2023-09-27 16:44:24 Nadeen Elise [facility] ASSIGNMENT OF BENEFITS 2023-09-27 15:37:58 Docto r Unassigned, Baring [facility] Encounters Start Date/Time End Date/Time Encounter Type Admission Type Attending [facility] Facility Care Department Encounter ID Source 2024-11-06 08:30:00 2024-11-06 08:30:00 Outpatient WILFRID GAGNON [id number] [facility] 2024-10-22 08:30:00 2024-10-22 08:30:00 Outpatient WILFRID GAGNON [id number] [facility] 2024-10-11 10:20:00 2024-10-11 10:20:00 Outpatient GURPREET HOWE [facility] [id number] [facility] 2024-10-08 13:30:00 2024-10-08 13:30:00 Outpatient WILFRID GAGNON [id number] [facility] 2024-09-11 00:00:00 2024-09-11 00:00:00 Outpatient WILFRID GAGNON [id number] [facility] 2023-12-27 08:30:00 2023-12-27 08:30:00 Outpatient WILFRID GAGNON [id number] [facility] 2023-09-27 09:41:23 2023-09-27 23:59:00 Hospital Encounter Lars Guillen [facility] [id number] [facility] 2023-09-27 09:41:23 2023-09-27 23:59:00 Outpatient LARS STEINBERG [facility] [id number] [facility] 2023-09-27 09:41:23 2023-09-27 23:59:00 Outpatient LARS STEINBERG [facility] [id number] [facility] 2023-09-27 00:00:00 2023-09-27 00:00:00 Orders Only Doctor Unassigned, Baring [facility] [id number] [facility] 2023-09-20 00:00:00 2023-09-20 00:00:00 Outpatient R LARS GUILLEN [facility] [id number] [facility] Results Test Description Test Time Test Comments [...] [facility] Notes Date/Time Note Provider Source 2024-10-08 13:28:22 Chief Complaint Patient presents with Pelvic Pain C/o lower pelvic pain x 1 month Beulah Torres MA [facility]
[2024-12-28] MEDS ORDERED: NA CHLORIDE 0.9% 1,000 ML ONE (16:51)
[2024-12-28] MEDS ORDERED: ONDANSETRON 4 MG/2 ML VIAL ONE (16:51)
[2024-12-28 16:52] LABS: Absolute Basophils 0.1 K/uL (0-0.5); Absolute Eosinophils 0.2 K/uL (0-0.5); Absolute Lymphocytes (CBC) 2.3 K/uL (0.7-4.9); Absolute Monocytes 0.6 K/uL (0.1-1.3); Absolute Neutrophil 6.5 K/uL (1.8-8.0); Basophils % 0.6 % (0-1.3); Eosinophils % 1.7 % (0-4.4); Hematocrit 40.6 % (36.0-45.0); Lymphocytes % 23.5 % (15.3-44.8); MCH 29.5 pg (27.0-35.0); MCHC 34.5 g/dL (32.0-36.0); MCV 85.5 fL (80-100); MPV 7.6 fL (7.6-11.3); Neutrophils % 68.2 % (41.7-73.7); Platelets 323 thou/uL (152-406); RBC Red Blood Cell Count 4.75 M/uL (3.86-4.86); Red Cell Distribution Width 12.9 % (12.1-15.2)
[2024-12-28 16:58] LABS: Sqamous Epithelial <5 /HPF (None Seen); Urine Bacteria None Seen /HPF (<20); Urine Bilirubin NEGATIVE (Negative); Urine Blood Negative (Negative); Urine Clarity Clear (Clear); Urine Color Yellow (Yellow); Urine Culture Reflex Order NOT NEEDED; Urine Glucose NEGATIVE (Negative); Urine Ketones NEGATIVE (Negative); Urine Microscopic Reflex YN ORDER UMIC; Urine Mucus Slight /HPF (None Seen); Urine Nitrite NEGATIVE (Negative); Urine Protein TRACE (Negative); Urine RBC <5 /HPF (None Seen); Urine Urobilinogen Normal (Normal); Urine WBC <5 /HPF (<5); Urine pH 6.5 (5.0-7.0)
[2024-12-28 17:05] LABS: Nucleated Red Blood Cells % 0.1 % (0-0)
[2024-12-28 17:14] LABS: Albumin 4.1 g/dL (3.4-5.0); Albumin/Globulin Ratio 1.1 (1.1-1.8); Anion Gap 7.8 mEq/L (5.0-15.0); Bilirubin Total 0.7 mg/dL (0.2-1.0); Globulin 3.7 g/dL (2.3-3.5); Potassium 3.8 mEq/L (3.5-5.1); Protein, Total 7.8 g/dL (6.4-8.2)
[2024-12-28] MEDS ORDERED: KETOROLAC 30 MG/ML INJ ONE (17:52)
[2024-12-28] MEDS ORDERED: HYDROCODONE/APAP 5/325 MG TAB ONE (17:52)
--- NOTE | 2024-12-28 18:33 | ER ---
Nurse's Notes [facility] Name: Rebeca Juan Age: 19 yrs Sex: Female : 2005 Arrival Date: 12/28/2024 Time: 15:19 Bed 9 Private MD: Diagnosis: Other ovarian cysts Presentation: 12/28 15:35 Chief complaint: Patient states: bilateral lower quadrant pain that started this me1 morning, got worse about 30 minutes ago with n/v and dizziness. Pain level 7/10 "sharp and cramping". Coronavirus screen: Vaccine status: Patient reports being unvaccinated. Ebola Screen: No symptoms or risks identified at this time. Initial Sepsis Screen: Does the patient meet any 2 criteria? No. Patient's initial sepsis screen is negative. Does the patient have a suspected source of infection? No. Patient's initial sepsis screen is negative. Risk Assessment: Do you want to hurt yourself or someone else? Patient reports no desire to harm self or others. Onset of symptoms was December 28, 2024 at 08:30. 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 - Infectious Disease History:: Denies. - Social history:: Smoking status: Patient denies any tobacco usage or history of. Screenin:56 [facility] ED Fall Risk Assessment (Adult) History of falling in the last 3 months, hb including since admission No falls in past 3 months (0 pts) Confusion or Disorientation No (0 pts) Intoxicated or Sedated No (0 pts) Impaired Gait No (0 pts) Mobility Assist Device Used No (0 pt) Altered Elimination No (0 pt) Score/Fall Risk Level 0 - 2 = Low Risk Oriented to surroundings, Maintained a safe environment, Educated pt \\T\\ family on fall prevention, incl call for assistance when getting out of bed. Abuse screen: Denies threats or abuse. Denies injuries from another. Nutritional screening: No deficits noted. Tuberculosis screening: No symptoms or risk factors identified. Assessment: 16:56 General: Appears in no apparent distress. Behavior is calm, cooperative. Pain: Pain hb currently is 3 out of 10 on a pain scale. Neuro: Level of Consciousness is awake, alert, obeys commands, Oriented to person, place, time, situation. Cardiovascular: Patient's skin is warm and dry. Respiratory: Respiratory effort is even, unlabored, Respiratory pattern is regular, symmetrical. GI: Reports lower abdominal pain, nausea, vomiting. : No signs and/or symptoms were reported regarding the genitourinary system. EENT: No signs and/or symptoms were reported regarding the EENT system. Derm: Skin is pink, warm \\T\\ dry. Musculoskeletal: No signs and/or symptoms reported regarding the musculoskeletal system. 18:13 Reassessment: Patient appears in no apparent distress at this time. Patient and/or hb family updated on plan of care and expected duration. Pain level reassessed. Patient is alert, oriented x 3, equal unlabored respirations, skin warm/dry/pink. Vital Signs: 15:35 BP 125 / 85; Pulse 97; Resp 16; Temp 97.8; Pulse Ox 98% ; Weight 54.43 kg; Height 5 ft. me1 3 in. ; Pain 7/10; 15:35 Body Mass Index 21.26 (54.43 kg, 160.02 cm) me1 15:35 Pain Scale: Adult me1 ED Course: 15:25 Patient arrived in ED. cj3 15:27 Hal Wilkes FNP-C is [facility]. dr5 15:27 Mikhail Osorio MD is Attending Physician. dr5 15:36 Triage completed. me1 15:36 Arm band placed on Patient placed in waiting room. me1 16:43 Initial lab(s) drawn, by ED staff, sent to lab. Urine collected: clean catch specimen, ty clear. Inserted saline lock: 20 gauge in right antecubital area, using aseptic technique. Blood collected. Flushed with 10 mL NS. 16:50 Bridgett Crowder, RN is Primary Nurse. hb 16:56 Patient has correct armband on for positive identification. Bed in low position. Call hb light in reach. Provided Education on: tests, result times. 17:48 US Transvaginal Study (Probe) In Process Unspecified. EDMS Administered Medications: 16:56 Drug: Ondansetron IVP 4 mg IVP once; over 2 minutes Route: IVP; Site: right antecubital;hb 18:12 Follow up: Response: No adverse reaction hb 16:56 Drug: NS 0.9% IV 1000 ml IV at 1 bolus Per protocol; to be given as a bolus over 60 hb minutes Route: IV; Rate: 1 bolus; Site: right antecubital; 18:12 Follow up: Response: No adverse reaction; IV Status: Completed infusion; IV Intake: hb 1000ml 18:00 Drug: Ketorolac IVP 15 mg IVP once Route: IVP; Site: right antecubital; hb 18:32 Follow up: Response: No adverse reaction hb 18:00 Drug: HYDROcodone-acetaminophen PO 5 mg-325 mg 2 tabs PO once Route: PO; hb Medication: 16:56 VIS not applicable for this client. hb Intake: 18:12 IV: 1000ml; Total: 1000ml. hb Outcome: 18:33 Discharge ordered by . dr5 18:53 Patient left the ED. hb Signatures: Dispatcher [employer] Bridgett Velázquez, RN RN Samaria Diego, RN RN me1 Flako Lee Dustin, LIGHTING DIRECTOR-C LIGHTING DIRECTOR-[facility]5 Ranjana Sanchez3
--- NOTE | 2024-12-28 18:33 | EDPHYS ---
Physician Documentation [facility] Name: Rebeca Juan Age: 19 yrs Sex: Female : 2005 Arrival Date: 12/28/2024 Time: 15:19 Bed 9 Private MD: ED Physician Mikhail Osorio HPI: 12/28 17:46 This 19 yrs old Female presents to ER via Ambulatory with complaints of dr5 Abdominal Pain, Nausea/Vomiting, Syncope. 17:46 Onset: The symptoms/episode began/occurred acutely. Patient is a 19-year-old female dr5 with history of ovarian cyst coming in with lower bilateral abdominal cramping that started this morning. Patient states that her pain got worse an hour prior to arrival. Patient has history of cholecystectomy and appendectomy. Patient states that she was recommended to follow-up with PANEL BEATER and has not had a chance to yet.. 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 - Infectious Disease History:: Denies. - Social history:: Smoking status: Patient denies any tobacco usage or history of. ROS: 17:46 Constitutional: as per hpi dr5 Exam: 17:46 Constitutional: This is a well developed, well nourished patient who is awake, alert, dr5 and in no acute distress. Head/Face: Normocephalic, atraumatic. ENT: Nares patent. No nasal discharge, no septal abnormalities noted. Tympanic membranes are normal and external auditory canals are clear. Oropharynx with no redness, swelling, or masses, exudates, or evidence of obstruction, uvula midline. Mucous membranes moist. Neck: Trachea midline, no thyromegaly or masses palpated, and no cervical lymphadenopathy. Supple, full range of motion without nuchal rigidity, or vertebral point tenderness. No Meningismus. Chest/axilla: Normal chest wall appearance and motion. Nontender with no deformity. No lesions are appreciated. Cardiovascular: Regular rate and rhythm with a normal S1 and S2. Normal PMI, no JVD. No pulse deficits. Respiratory: Lungs have equal breath sounds bilaterally, clear to auscultation. No rales, rhonchi or wheezes noted. No increased work of breathing, no retractions or nasal flaring. Abdomen/GI: Soft, non-tender, non-distended in upper quadrants. Mild tenderness to left lower quadrant. Back: No spinal tenderness. No costovertebral tenderness. Full range of motion. Skin: Warm, dry with normal turgor. Normal color with no rashes, no lesions, and no evidence of cellulitis. MS/ Extremity: Pulses equal, no cyanosis. Neurovascular intact. Full, normal range of motion. Vital Signs: 15:35 BP 125 / 85; Pulse 97; Resp 16; Temp 97.8; Pulse Ox 98% ; Weight 54.43 kg; Height 5 ft. me1 3 in. ; Pain 7/10; 15:35 Body Mass Index 21.26 (54.43 kg, 160.02 cm) me1 15:35 Pain Scale: Adult me1 MDM: 15:27 Medical Screening Exam initiated dr5 17:46 Differential diagnosis: urinary tract infection, , ovarian cyst. Data dr5 reviewed: vital signs, nurses notes, lab test result(s), radiologic studies. I considered the following discharge prescriptions or medication management in the emergency department Medications were administered in the Emergency Department. See MAR. Care significantly affected by the following Social Determinants of Health: Poor access to healthcare and/or lack of insurance, Poor access to transportation, Problems related to employment. Counseling: I had a detailed discussion with the patient and/or guardian regarding the historical points, exam findings, and any diagnostic results supporting the discharge/admit diagnosis, the presence of at least one elevated blood pressure reading (>120/80) during this emergency department visit, lab results, radiology results, the need for outpatient follow up, for definitive care, a family practitioner, an OB/Gyne specialist, to return to the emergency department if symptoms worsen or persist or if there are any questions or concerns that arise at home. Medication response: Toradol relieved patient's pain. The symptoms have resolved. 18:41 ED course: No torsion or hemorrhagic cyst noted. Will have patient follow-up with DEVULCANIZER LOADER dr5 doctor. Patient is feeling much better. All question answered.. 12/28 16:09 Order name: CBC with Diff; Complete Time: 17:14 dr5 12/28 16:09 Order name: CMP; Complete Time: 17:15 dr5 12/28 16:09 Order name: Lipase; Complete Time: 17:15 [facility] 12/28 16:09 Order name: Test, Urine; Complete Time: 17:05 dr5 12/28 16:09 Order name: UA Rfx Shaun Cult if indicated; Complete Time: 17:05 [facility] 12/28 16:45 Order name: US Transvaginal Study (Probe) dr5 12/28 16:09 Order name: IV Saline Lock; Complete Time: 16:50 [facility] 12/28 16:09 Order name: Labs collected and sent; Complete Time: 16:50 dr5 Administered Medications: 16:56 Drug: Ondansetron IVP 4 mg IVP once; over 2 minutes Route: IVP; Site: right antecubital;hb 18:12 Follow up: Response: No adverse reaction hb 16:56 Drug: NS 0.9% IV 1000 ml IV at 1 bolus Per protocol; to be given as a bolus over 60 hb minutes Route: IV; Rate: 1 bolus; Site: right antecubital; 18:12 Follow up: Response: No adverse reaction; IV Status: Completed infusion; IV Intake: hb 1000ml 18:00 Drug: Ketorolac IVP 15 mg IVP once Route: IVP; Site: right antecubital; hb 18:32 Follow up: Response: No adverse reaction hb 18:00 Drug: HYDROcodone-acetaminophen PO 5 mg-325 mg 2 tabs PO once Route: PO; hb Disposition Summary: 12/28/24 18:33 Discharge Ordered Notes: Location: Home dr5 Condition: Stable dr5 Diagnosis - Other ovarian cysts dr5 Followup: dr5 - With: Emergency Department - When: As needed - Reason: Worsening of condition Followup: dr5 - With: Private Physician - When: 1 - 2 days - Reason: Recheck today's complaints, Continuance of care, Re-evaluation by your physician Discharge Instructions: - Discharge Summary Sheet dr5 - Ovarian Cyst dr5 Forms: - Medication Reconciliation Form dr5 - Patient Portal Instructions dr5 - Leadership Thank You Letter dr5 Prescriptions: - Ibuprofen 800 mg Oral Tablet - take 1 tablet ORAL route every 12 hours As needed take with food; 20 tablet; dr5 Refills: 0, Product Selection Permitted Addendum: 12/29/2024 19:22 Co-signature as Attending Physician, Mikhail Osorio MD I agree with the assessment and c benitez plan of care. Signatures: Dispatcher [employer] EDMS Mikhail Osorio MD MD cha Baxter, Heather, RN RN Samaria Diego, PAUL RN de1 Hal Wilkes, STEMMING MACHINE OPERATOR-C STEMMING MACHINE OPERATOR-Cdr5 Corrections: (The following items were deleted from the chart) 12/28 16:46 16:46 Transvaginal Study (Probe)+[email or web address] ordered. EDMS EDMS
[2024-12-28 18:59] VITALS: BP 125/85; TEMP 97.8; O2SAT 98
--- NOTE | 2024-12-28 19:38 | RAD REPORT ---
EXAMINATION: US Transvaginal Study Probe CLINICAL INDICATION: Female 19 years old.[facility] MAIN ABD PAIN Bed Name: 9 TECHNIQUE: Real-time ultrasonography of the pelvis was performed transvaginally. Color and spectral D oppler evaluation of the ovaries was performed. COMPARISON: No prior exam. FINDINGS: UTERUS AND CERVIX: The uterus measures 6.1 cm in length. The uterus is normal. No masses seen The end ometrium is normal, 0.1 cm in thickness. RIGHT OVARY: Dominant 3.1 x 2.7 x 2.5 cm cyst, anechoic, with thin-walled, and no evidence of septati ons or calcifications. The right ovary measures 4.1 x 2.8 x 3.1 cm. Normal color and spectral Doppler evaluation of the right ovary.. LEFT OVARY: Normal The left ovary measures 2.4 x 1.3 x 1.5 cm. Normal color and spectral Doppler evaluation of the left ovary.. FREE FLUID: No free fluid. IMPRESSION: No evidence of torsion or other acute findings. Incidentally noted dominant 3.1 cm right ovarian cyst, favored to be physiologic.
== END 2024-12-28 18:53 | disposition home or self-care (01) ==
LOC: ER 15:19
DX: N83.291 Other ovarian cyst, right side (principal)
CPT/HCPCS: 96361; 85025; 81001; 36415; 81025; 83690; 80053; 76830; 96375; 96374; 99284; J2405; J7030